=== PATIENT | female | born 1995 | race Caucasian/White ===

== ENCOUNTER 2019-11-29 08:07 | Outpatient (CLI) | payer MEDICAID, SELFPAY ==
[2019-11-29 09:55] LABS: Hemoglobin 11.7 g/dL (12.0-15.0); Mean Corpuscular HGB Conc 33.4 g/dl (32-36); Mean Corpuscular Hemoglobin 29.9 pg (26-34); Mean Corpuscular Volume 89.5 fl (80-100); Mean Platelet Volume 11.6 fl (7.4-10.4); Platelet Count Result 225 k/mm3 (150-375); Red Blood Count 3.91 M/mm3 (4.2-5.4); Red Cell Distribution Width 13.1 % (11.5-14.5); White Blood Count 9.8 K/mm3 (4.5-10.0)
[2019-11-29 10:05] LABS: Glucose 1 Hour PP 50gm Dose 117 mg/dL
== END 2019-11-29 08:08 | disposition home or self-care (01) ==
PROVIDERS: PCP Physician Assistant; Visit Provider Obstetrics & Gynecology
DX: Z34.90 Encounter for supervision of normal pregnancy, unspecified, unspecified trimester (principal); Z3A.00 Weeks of gestation of pregnancy not specified
CPT/HCPCS: 36415; 82947; 85027

== ENCOUNTER 2019-12-28 13:44 | Outpatient (CLI) | payer MEDICAID, SELFPAY ==
[2019-12-28 16:06] LABS: HIV 1/2 Ab P24 Ag Result Negative (Negative)
== END 2019-12-28 13:45 | disposition home or self-care (01) ==
LOC: ANHLAB 13:46
PROVIDERS: PCP Physician Assistant; Visit Provider Obstetrics & Gynecology
DX: Z34.90 Encounter for supervision of normal pregnancy, unspecified, unspecified trimester (principal)
CPT/HCPCS: 36415; 86703; G0432

== ENCOUNTER 2019-12-28 15:07 | Outpatient (CLI) | payer MEDICAID, SELFPAY ==
--- NOTE | ~2019-12-28 | US_ITS ---
EXAMINATION: US OB follow up DATE: 12/28/2019 15:43 INDICATION: Antepartum hemorrhage during third trimester of . TECHNIQUE: Real-time ultrasound of the pelvis was performed. The interpreting radiologist was not pre sent for the study. COMPARISON: None FINDINGS: There is a single living fetus in vertex presentation. The placenta is anterior. heart rate is 141 beats per minute (bpm). The amniotic fluid index is 14.0 cm, which is normal (5th%-95%: 8.6-24. 2 cm at 32 weeks estimated gestational age). The following biometric data were obtained: Head circumference: 29.0 cm -> 32 weeks 0 days Abdominal circumference: 27.7 cm -> 31 weeks 5 days Femur length: 6.2 cm -> 32 weeks 2 days These measurements are concordant. Head circumference to abdominal circumference ratio: 1.05 (normal range 0.96-1.14). Estimated weight: 1872 g (+/-) 281 g. or 4 lbs. 2 oz. (+/-) 10 oz. IMPRESSION: 1. Single living fetus in vertex presentation with heart rate of 141 bpm. 2. Normal amniotic fluid index of 14.0 cm. 3. Estimated weight is 37th percentile by Hadlock criteria when 02/22/2020 is used as the estima ronal date of delivery (JIGNA). Please correlate with clinical information or earlier ultrasounds for mos t accurate JIGNA. Reviewed, dictated and finalized at location A. IMPRESSION: 1. Single living fetus in vertex presentation with heart rate of 141 bpm. 2. Normal amniotic fluid index of 14.0 cm. 3. Estimated weight is 37th percentile by Hadlock criteria when 02/22/2020 is used as the estimated date of delivery (JIGNA). Please correlate with clinica l information or earlier ultrasounds for most accurate JIGNA.
== END 2019-12-28 15:08 | disposition home or self-care (01) ==
PROVIDERS: PCP Physician Assistant; Visit Provider Obstetrics & Gynecology
DX: O46.93 Antepartum hemorrhage, unspecified, third trimester (principal)
CPT/HCPCS: 36415; 76816; 86703; G0432

== ENCOUNTER 2020-01-27 06:35 | Observation (INO) | payer MEDICAID, SELFPAY ==
--- NOTE | 2020-01-27 06:35 | OBADM ---
This patient, Shelley Arce, admitted to the OB room Labor/Delivery/Recovery 106 for observation. Patient/family oriented to hospital policies and general routines including ID bracelet, bed and alarms, visiting hours, pain management, procedures, bathroom and other care routines, personal items, smoking policy, room service/diet, and visiting hours. Patient/Family are encouraged to report perceived risks to care and to ask questions if they do not understand what they are told or what they should do.
[2020-01-27 06:48] VITALS: BP 113/66; PULSE 99
[2020-01-27 07:01] VITALS: BP 103/74; PULSE 97
[2020-01-27 07:31] VITALS: BP 113/71; PULSE 82
--- NOTE | 2020-02-12 08:55 | PM.OBTRLD ---
OB - Triage/Final Diagnosis Final Diagnosis (1) contractions: Code(s): O47.9 - False labor, unspecified Status: Acute
== END 2020-01-27 08:00 | disposition home or self-care (01) ==
PROVIDERS: Admitting Provider Obstetrics & Gynecology; PCP Physician Assistant; Visit Provider Obstetrics & Gynecology
DX: O47.03 False labor before 37 completed weeks of gestation, third trimester (principal); Z3A.36 36 weeks gestation of pregnancy
CPT/HCPCS: G0378; G0379

== ENCOUNTER 2020-01-28 21:03 | Observation (INO) | payer MEDICAID, SELFPAY ==
[2020-01-28 21:20] VITALS: BMI 41.0
--- NOTE | 2020-02-28 07:53 | PM.OBTRLD ---
OB - Triage/Final Diagnosis Final Diagnosis (1) False labor: Code(s): O47.9 - False labor, unspecified Status: Acute
--- NOTE | 2020-02-28 07:54 | PM.OBTRLD ---
OB - Triage/Final Diagnosis Final Diagnosis (1) False labor: Code(s): O47.9 - False labor, unspecified Status: Acute
--- NOTE | 2020-02-28 11:47 | PM.OBTRLD ---
OB - Triage/Final Diagnosis Final Diagnosis (1) False labor: Code(s): O47.9 - False labor, unspecified Status: Acute
== END 2020-01-28 22:35 | disposition home or self-care (01) ==
PROVIDERS: Admitting Provider Obstetrics & Gynecology; PCP Physician Assistant; Visit Provider Obstetrics & Gynecology
DX: O47.03 False labor before 37 completed weeks of gestation, third trimester (principal); Z3A.36 36 weeks gestation of pregnancy
CPT/HCPCS: G0378; G0379

== ENCOUNTER 2020-01-29 09:59 | Outpatient (CLI) | payer MEDICAID, SELFPAY ==
--- NOTE | ~2020-01-29 | US_ITS ---
EXAMINATION: US OB limited DATE: 01/29/2020 10:41 INDICATION: Rupture of membranes. Third trimester. TECHNIQUE: Real-time ultrasound of the pelvis was performed. COMPARISON: Ultrasound 12/28/2019 FINDINGS: There is a single fetus in vertex presentation. The placenta is anterior, 10.6 cm from the cervix. F etal heart rate is 158 beats per minute (bpm). The amniotic fluid index is 13.9 cm, which is normal. IMPRESSION: 1. Single living fetus in vertex presentation. 2. Normal amniotic fluid index. Reviewed, dictated and finalized at location B. [facility]
--- NOTE | 2020-02-08 09:27 | PM.OBTRLD ---
OB - Triage/Final Diagnosis Final Diagnosis (1) False labor: Code(s): O47.9 - False labor, unspecified Status: Acute
== END 2020-01-29 10:00 | disposition home or self-care (01) ==
PROVIDERS: PCP Physician Assistant; Visit Provider Obstetrics & Gynecology
DX: O42.90 Premature rupture of membranes, unspecified as to length of time between rupture and onset of labor, unspecified weeks of gestation (principal); Z3A.00 Weeks of gestation of pregnancy not specified
CPT/HCPCS: 76815

== ENCOUNTER 2020-02-02 18:30 | Observation (INO) | payer MEDICAID, SELFPAY ==
--- NOTE | 2020-02-02 18:30 | OBADM ---
This patient, Shelley Arce, admitted to the OB room Labor/Delivery/Recovery 103 for observation. Patient/family oriented to hospital policies and general routines including ID bracelet, bed and alarms, visiting hours, pain management, procedures, bathroom and other care routines, personal items, smoking policy, room service/diet, and visiting hours. Patient/Family are encouraged to report perceived risks to care and to ask questions if they do not understand what they are told or what they should do.
[2020-02-02 18:50] VITALS: BMI 40.4
--- NOTE | 2020-02-28 11:49 | PM.OBTRLD ---
OB - Triage/Final Diagnosis Final Diagnosis (1) False labor: Code(s): O47.9 - False labor, unspecified Status: Acute
== END 2020-02-02 21:05 | disposition home or self-care (01) ==
PROVIDERS: Admitting Provider Obstetrics & Gynecology; PCP Physician Assistant; Visit Provider Obstetrics & Gynecology
DX: O47.9 False labor, unspecified (principal); Z3A.00 Weeks of gestation of pregnancy not specified
CPT/HCPCS: G0378; G0379

== ENCOUNTER 2020-02-03 13:08 | Observation (INO) | payer MEDICAID, SELFPAY ==
[2020-02-03 13:19] VITALS: BP 117/77; PULSE 107
--- NOTE | 2020-02-03 14:34 | PC.NURSE ---
PATIENT PRESENTED WITH C/O SROM (LEAKING IN TUB AND TOILET AND WET UNDERWARE). WAS HERE LAST NIGHT FOR CONTRACTIONS AND CERVIX DID NOT CHANGE. SVE UNCHANGED AFTER ROM PLUS NEGATIVE. PT VERY EMOTIONAL AND CRYING OUT OF FRUSTRATION. PARTNER IS WILLING TO HELP AT HOME WITH THE OTHER 2 KIDS SO SHE CAN TRY TO SLEEP/REST COMFORTABLY W/O KIDS.
--- NOTE | 2020-02-28 11:50 | PM.OBTRLD ---
OB - Triage/Final Diagnosis Final Diagnosis (1) False labor: Code(s): O47.9 - False labor, unspecified Status: Acute
== END 2020-02-03 14:30 | disposition home or self-care (01) ==
PROVIDERS: Admitting Provider Obstetrics & Gynecology; PCP Physician Assistant; Visit Provider Obstetrics & Gynecology
DX: O47.9 False labor, unspecified (principal); Z3A.00 Weeks of gestation of pregnancy not specified
CPT/HCPCS: G0378; G0379

== ENCOUNTER 2020-02-10 19:05 | Observation (INO) | payer MEDICAID, SELFPAY ==
[2020-02-10 23:00] VITALS: BMI 41.0
--- NOTE | 2020-02-10 23:02 | OBADM ---
This patient, Shelley Arce, admitted to the OB room Labor/Delivery/Recovery 102 for observation. Patient/family oriented to hospital policies and general routines including ID bracelet, bed and alarms, visiting hours, pain management, procedures, bathroom and other care routines, personal items, smoking policy, room service/diet, and visiting hours. Patient/Family are encouraged to report perceived risks to care and to ask questions if they do not understand what they are told or what they should do.
--- NOTE | 2020-02-19 10:48 | PM.OBTRLD ---
OB - Triage/Final Diagnosis Final Diagnosis (1) False labor: Code(s): O47.9 - False labor, unspecified Status: Acute
== END 2020-02-10 20:57 | disposition home or self-care (01) ==
PROVIDERS: Admitting Provider Obstetrics & Gynecology; PCP Physician Assistant; Visit Provider Obstetrics & Gynecology
DX: O47.9 False labor, unspecified (principal); Z3A.00 Weeks of gestation of pregnancy not specified
CPT/HCPCS: G0378; G0379

== ENCOUNTER 2020-02-15 05:06 | Inpatient (IN) | payer MEDICAID, SELFPAY ==
[2020-02-15] VITALS (112 sets, daily range): BP systolic 80–153; BP diastolic 48–109; PULSE 56–218; RESP 13; TEMP 36.1–36.8; O2SAT 87–100; BMI 40.2
--- NOTE | 2020-02-15 05:34 | LDADM ---
This patient, Shelley Arce, was admitted to Labor/Delivery/Recovery 103 on 02/15/20 at 05:06. Plans for labor, pain management and were discussed with patient. Patient/family oriented to hospital policies and general routines including ID bracelet, bed and alarms, visiting hours, pain management, procedures, bathroom and other care routines, personal items, smoking policy, room service/diet and guest tray routines, infant security routines, and visiting hours. Patient/Family are encouraged to report perceived risks to care and to ask questions if they do not understand what they are told or what they should do. See OBIX for further documentation.
[2020-02-15] MEDS: LACTATED RINGERS 1,000 ML 125 ML IV CONT ×3 (05:51→14:12)
[2020-02-15] MEDS: OXYTOCIN 30 UNITS/NS 500 ML 30 UNITS/500 ML BAG IV CONT (05:52)
[2020-02-15 06:07] LABS: Basophils Absolute Auto 0.1 K/mm3 (0.0-0.1); Basophils Percent Auto 0.7 % (0.2-1.2); Eosinophils Absolute Auto 0.2 K/mm3 (0-0.3); Hematocrit 34.5 % (37.0-47.0); Hemoglobin 11.4 g/dL (12.0-15.0); Immature Granulocyte Absolute 0.04 K/mm3 (0.00-0.031); Immature Granulocyte Percent A 0.5 % (0-0.5); Lymphocytes Absolute Auto 2.13 K/mm3 (0.9-3.2); Mean Corpuscular Hemoglobin 28.4 pg (26-34); Mean Corpuscular Volume 85.8 fl (80-100); Mean Platelet Volume 12.4 fl (7.4-10.4); Monocytes Absolute Auto 0.7 K/mm3 (0.1-0.6); Monocytes Percent Auto 7.6 % (2.6-8.5); Neutrophils Absolute Auto 5.8 K/mm3 (1.3-6.7); Neutrophils Percent Auto 65.2 % (45.5-73.1); Platelet Count Result 218 k/mm3 (150-375); Red Blood Count 4.02 M/mm3 (4.2-5.4); Red Cell Distribution Width 13.2 % (11.5-14.5); White Blood Count 8.9 K/mm3 (4.5-10.0)
[2020-02-15 09:01] LABS: Rapid Plasma Reagin Non-Reactive (NonReactive)
--- NOTE | 2020-02-15 10:21 | WPDANESEPP ---
Anes - Eval Pre Procedure Procedure: labor epidural Date/Time: 02/15/20 10:21 Preop Diagnosis: labor pain Pre Op Diagnosis: Induction of Labor Patient Data Age: 25 Gender: F Height: 5 ft 3.5 in Weight: 104.75 kg Last Vital Signs Temp 36.1 C L 02/15/20 10:00 Pulse 100 02/15/20 09:01 BP 145/85 H 02/15/20 09:01 Allergies Allergy/AdvReac Type Severity Reaction Status Date / Time iodine Allergy Severe Dyspnea / Verified 02/08/20 13:04 SOB shellfish derived Allergy Severe Dyspnea / Verified 02/08/20 13:04 SOB milk AdvReac Mild Abdominal Verified 02/15/20 05:20 Pain Shrimp Allergy Unknown Dyspnea / Uncoded 02/08/20 13:04 SOB Home Medications Medication Instructions Recorded Confirmed Type albuterol sulfate 90 mcg/actuation 1 inhalation INHALATION PRN PRN 10/11/19 02/02/20 History breath activated powder inhaler fluticasone propionate 50 1 inhalation INHALATION Q12H 10/11/19 02/02/20 History mcg/actuation blister powder for inhalation montelukast 10 mg PO DAILY 01/25/20 02/02/20 History loratadine [Allergy Relief 10 mg PO DAILY 02/15/20 02/15/20 History (loratadine)] Laboratory Tests 02/15/20 02/15/20 02/15/20 05:50 05:50 05:50 WBC 8.9 K/mm3 K/mm3 (4.5-10.0) RBC 4.02 M/mm3 L M/mm3 (4.2-5.4) Hgb 11.4 g/dL L g/dL (12.0-15.0) Hct 34.5 % L % (37.0-47.0) MCV 85.8 fl fl (80-100) MCH 28.4 pg pg (26-34) MCHC 33.0 g/dl g/dl (32-36) RDW 13.2 % % (11.5-14.5) Plt Count 218 k/mm3 k/mm3 (150-375) MPV 12.4 fl H fl (7.4-10.4) Immature Gran % (Auto) 0.5 % % (0-0.5) Neut % (Auto) 65.2 % % (45.5-73.1) Lymph % (Auto) 24.0 % % (18.3-44.2) Kane % (Auto) 7.6 % % (2.6-8.5) Eos % (Auto) 2.0 % % (0-4.4) Baso % (Auto) 0.7 % % (0.2-1.2) Lymph # (Auto) 2.13 K/mm3 K/mm3 (0.9-3.2) Kane # (Auto) 0.7 K/mm3 H K/mm3 (0.1-0.6) Eos # (Auto) 0.2 K/mm3 K/mm3 (0-0.3) Baso # (Auto) 0.1 K/mm3 K/mm3 (0.0-0.1) Abs Immat Gran (auto) 0.04 K/mm3 H K/mm3 (0.00-0.031) Absolute Neuts (auto) 5.8 K/mm3 K/mm3 (1.3-6.7) Absolute Nucleated RBC 0.0 K/mm3 K/mm3 (0.0-0.012) Nucleated RBC % 0.0 % % (0.0-0.2) RPR Non-reactive (NonReactive) Blood Type A Positive Antibody Screen Negative Patient hx anesthesia problems: none Family hx anesthesia problems: none PMFSH Past Medical History Medical History (Updated 02/12/20 @ 08:55 by Milli Mackey MD) Asthma Miscarriage 03/2017 Vaginal delivery 1. Full term 11/2012 Male 8lbs 2. Full term 03/2017 Male 7lbs 1oz Surgical History Surgical History H/O dilation and curettage [place] teeth removed Family History Family History Grandparent Diabetes mellitus Hypertension Hyperlipidemia Lung cancer Skin cancer Mother Skin cancer Social History Social History Smoking packs per day: 0.5 Smoking cigarettes per day: 10.0 Years smoked: 7 Smoking pack-years: 3.50 Smoking status: Former smoker Tobacco type: cigarettes Second hand tobacco smoke exposure: No Alcohol intake: never Substance use: never Gender identity (if verbalized by the patient): Female Spiritual care concerns: No Exam Day of Procedure 02/15/20 10:21
[2020-02-15] MEDS: fentaNYL CITRATE INJ (*CRX) 100 MCG/2 ML VIAL IV PUSH (11:02)
--- NOTE | 2020-02-15 16:37 | P.PCNOB_ITS ---
OB - Delivery Note Procedure Delivery date: 02/15/20 events: Labor Induction Intrapartal events: None Induction method: per pitocin protocol Delivery monitor: external FHT and external uterine Route of delivery: Laceration Description: None Specimen: No Quantitative Blood Loss: 68 Anesthesia type: Epidural Disposition: floor [place] Baby Date of : 02/15/20 Time of : 16:25 Weeks of gestation at delivery: 39 Infant gender: Male Weight (pounds): 6 Weight (ounces): 13 presentation: vertex position: Left Occiput Anterior Placenta delivery description: Spontaneous cord vessel description: 3 Vessels and Clamped/Cut score one minute: 8 score five minutes: 9
--- NOTE | 2020-02-15 16:40 | WPDOBADMIT ---
Obstetrics - Admit Note Admission Note: record reviewed. No pertinent additions to the history and/or any subsequent changes in the physical findings that are not consistent with the expected course of the were found. Additions to the history and/or subsequent changes in the physical findings follow. at 39 weeks admitted for elective induction of labor. Cervix 350/-2. Pitocin per protocol.
[2020-02-15] MEDS: OXYTOCIN 30 UNITS/NS 500 ML 30 UNITS/500 ML BAG 125 UNITS IV CONT (16:53)
[2020-02-15] MEDS: WITCH HAZEL 40 PADS 1 PAD TOPICAL (19:15)
[2020-02-16] MEDS: IBUPROFEN 600 MG TABLET PO ×3 (02:41→17:07)
[2020-02-16] MEDS: ACETAMINOPHEN 325 MG TABLET 650 MG PO ×2 (04:50→12:04)
[2020-02-16 06:07] LABS: Hematocrit 33.6 % (37.0-47.0); Hemoglobin 11.2 g/dL (12.0-15.0)
[2020-02-16 08:10] VITALS: BP 124/82; PULSE 90; RESP 20; TEMP 36.2
--- NOTE | 2020-02-16 10:35 | P.PNOB_ITS ---
OB - PN: Subj Subjective Date/time seen: 02/16/20 10:35 Patient doing well this morning. Mild cramping. Pain well controlled with medication. Denies any headache, chest pain, shortness of breath, nausea, or vomiting. Minimal lochia. Ambulating without difficulty. OB - PN: Obj Data Labs CBC & Chem 7: 02/16/20 04:56 Labs: Laboratory Results - last 24 hr 02/16/20 04:56 Hgb 11.2 L Hct 33.6 L OB - PN A/P Assessment and Plan (1) Normal spontaneous vaginal delivery: Code(s): O80 - Encounter for full-term uncomplicated delivery Status: Acute Assessment and Plan: PPD#1 doing well continue routine care anticipate dc home tomorrow Time Spent With Patient Time: Total time spent is greater than 50% in coordination of care (as documented) at patient's floor/unit and/or counseling patient: Exam 2 Const: General: cooperative, healthy appearing, comfortable and no acute distress GI: Inspection: normal to inspection and non-distended GI Palp: Yes Soft to palpation and No Tenderness to palpation present (GI) Other: fundus below umbilicus Extrem: Right lower extremity: edema (trace) Left lower extremity: edema (trace) Other: no calf tenderness
[2020-02-16 20:05] VITALS: BP 124/77; PULSE 81; RESP 14; TEMP 36.8; O2SAT 97
[2020-02-17] MEDS: IBUPROFEN 600 MG TABLET PO ×2 (00:17→10:30)
[2020-02-17] MEDS: ACETAMINOPHEN 325 MG TABLET 650 MG PO (05:14)
--- NOTE | 2020-02-17 08:35 | P.PNOB_ITS ---
OB - PN: Subj Subjective Date/time seen: 02/17/20 08:35 Patient doing well this AM. Reports mild cramping well controlled with medication. Denies any fever, chest pain, SOB, N/V. Minimal lochia. Ambulating without difficulty. OB - PN: Obj Data Labs CBC & Chem 7: 02/16/20 04:56 OB - PN A/P Assessment and Plan (1) Normal spontaneous vaginal delivery: Code(s): O80 - Encounter for full-term uncomplicated delivery Status: Acute Assessment and Plan: PPD#2 doing well discharge home in stable condition emergency precautions reviewed advised to f/u with primary OB in 4-6 weeks for visit all questions and concerns addressed Time Spent With Patient Time: Total time spent is greater than 50% in coordination of care (as document ed) at patient's floor/unit and/or counseling patient: Exam Const: General: cooperative, healthy appearing, comfortable and no acute distress GI: GI Palp: Yes Soft to palpation and No Tenderness to palpation present (GI) Other: fundus firm below umbilicus Extrem: Right lower extremity: no edema Left lower extremity: no edema Other: no calf tenderness
--- NOTE | 2020-02-17 08:37 | PM.OBDSVD ---
DS: Admitting Diagnosis Admitting Diagnosis Admitting Diagnosis: Induction of Labor OB - DS: Summary OB Procedures : None OB Procedures Intrapartum: Spontaneous Vag Delivery OB Procedures: : None Time Spent with Patient Time attestation: Total time spent providing and/or coordinating discharge services: Discharge Plan Discharge Attending physician on discharge: Farhana Heaton Discharging Clinician: Farhana Heaton Anticipated Discharge Date/Time: 02/17/20 08:37 Patient Disposition: Home, Self-Care Activity: as tolerated and pelvic rest Diet: regular Discharge Instructions: Call office ([phone]) to schedule a visit in 4-6 weeks. You may take Ibuprofen 600mg every 6 hours as needed for pain. Pain medication may make you constipated. It may be helpful to take an [id number] stool softener, such as Colace and/or Senokot, along with the pain medication to help lessen constipation. Call office or go to ED for pain not controlled with medication, headache, chest pain, shortness of breath, fever, chills, persistent nausea or vomiting, severe abdominal pain, heavy vaginal bleeding >2 pads/hour, foul vaginal discharge or odor, or problems with your breasts. Patient Instructions: Antibiotic Form Stand Alone Forms: General Discharge Information Follow-up/Referrals: Milli Mackey MD [Physician] - Discharge Medications: Continued Flovent Diskus 50 mcg/actuation blister with device 1 inhalation INHALATION Q12H RF: 0 albuterol sulfate 90 mcg/actuation aerosol powdr breath activated 1 inhalation INHALATION PRN PRN (Reason: Bronchospasm) RF: 0 montelukast 10 mg Tablet 10 mg PO DAILY RF: 0 loratadine [Allergy Relief (loratadine)] 10 mg Tablet 10 mg PO DAILY RF: 0 Date of admission: 02/15/20 05:06 Primary Care Provider: Ariel,Dov Alfonso Admitting Provider: Milli Mackey Attending physician on admission: Milli Mackey Condition: Stable
[2020-02-17 10:00] VITALS: BP 112/69; PULSE 100; RESP 20
--- NOTE | 2020-02-17 10:30 | PC.NURSE ---
Patient was given the opportunity to view the discharge video Mother & Baby Care, The First Two Weeks and to ask questions. Patient declined viewing the video and has been given the mother/baby guide for home reference.
[2020-02-19 09:43] VITALS: BP 122/77; PULSE 92; RESP 20; TEMP 37; O2SAT 99
== END 2020-02-17 10:58 | disposition home or self-care (01) | DRG 560 ==
LOC: ANHLDR 05:39 → ANHOB2 02-17 08:38 → ANHLDR 02-19 12:09 → ANHOB2 02-19 12:09
PROVIDERS: Admitting Provider Obstetrics & Gynecology; PCP Physician Assistant; Visit Provider Student in an Organized Health Care Education/Training Program
DX: O80 Encounter for full-term uncomplicated delivery (principal); Z3A.39 39 weeks gestation of pregnancy; Z37.0 Single live birth
CPT/HCPCS: 36415; 85014; 85018; 85025; 86592; 86850; 86900; 86901; A9270; J2590; J2795; J3010; J7120

== ENCOUNTER 2021-02-20 15:35 | Outpatient (CLI) | payer MEDICAID, SELFPAY ==
--- NOTE | ~2021-02-20 | US_ITS ---
EXAMINATION: US OB <= 14 weeks fetus DATE: 02/20/2021 16:27 INDICATION: Uncertain dates. . TECHNIQUE: Real-time transabdominal pelvic ultrasound was performed. COMPARISON: None. FINDINGS: The uterus measures 9.3 x 5.0 x 6.2 cm. There is an intrauterine gestational sac. A yolk sac is ident ified. The crown rump length measures 6 mm, which correlates with an estimated gestational age of 6 weeks and 3 day(s) (+/-) 4 day(s). heart motion is identified measuring 127 beats per min [place] (bpm) by M-mode Doppler. The right ovary measures 2.1 x 1.3 x 2.2 cm. The left ovary measures 2.5 x 1.0 x 2.4 cm. There is no free fluid in the pelvis. IMPRESSION: 1. Single living intrauterine gestation with estimated date of delivery of 10/13/2021. Reviewed, dictated and finalized at location A. [employer] IMPRESSION: 1. Single living intrauterine gestation with estimated date of delivery of 09/19.
== END 2021-02-20 15:36 | disposition home or self-care (01) ==
LOC: ANHIMG 15:38
PROVIDERS: PCP Physician Assistant; Visit Provider Obstetrics & Gynecology
DX: Z34.91 Encounter for supervision of normal pregnancy, unspecified, first trimester (principal); Z3A.01 Less than 8 weeks gestation of pregnancy
CPT/HCPCS: 76801

== ENCOUNTER 2021-03-10 13:58 | Outpatient (CLI) | payer MEDICAID, SELFPAY ==
[2021-03-10 20:35] LABS: Basophils Absolute Auto 0.1 K/mm3 (0.0-0.1); Basophils Percent Auto 1.1 % (0.2-1.2); Eosinophils Absolute Auto 0.1 K/mm3 (0-0.3); Eosinophils Percent Auto 1.6 % (0-4.4); Hematocrit 41.7 % (37.0-47.0); Hemoglobin 13.8 g/dL (12.0-15.0); Immature Granulocyte Absolute 0.01 K/mm3 (0.00-0.031); Immature Granulocyte Percent A 0.2 % (0-0.5); Lymphocytes Absolute Auto 1.73 K/mm3 (0.9-3.2); Lymphocytes Percent Auto 30.8 % (18.3-44.2); Mean Corpuscular HGB Conc 33.1 g/dl (32-36); Mean Corpuscular Hemoglobin 29.4 pg (26-34); Mean Corpuscular Volume 88.7 fl (80-100); Mean Platelet Volume 11.7 fl (7.4-10.4); Monocytes Absolute Auto 0.5 K/mm3 (0.1-0.6); Monocytes Percent Auto 8.6 % (2.6-8.5); Neutrophils Absolute Auto 3.2 K/mm3 (1.3-6.7); Neutrophils Percent Auto 57.7 % (45.5-73.1); Platelet Count Result 252 k/mm3 (150-375); Red Cell Distribution Width 12.9 % (11.5-14.5); White Blood Count 5.6 K/mm3 (4.5-10.0)
[2021-03-10 20:58] LABS: Vitamin D 25 Hydroxy 21.4 ng/mL
[2021-03-10 21:11] LABS: Thyroid Stimulating Hormone 0.665 uIU/mL (0.465-4.680)
[2021-03-10 21:16] LABS: Hepatitis B Surface Antigen Negative (Negative); Rubella IgG Antibody 11.4 IU/ML
[2021-03-10 21:21] LABS: HIV 1/2 Ab P24 Ag Result Negative (Negative)
[2021-03-10 21:30] LABS: Hepatitis C Virus Antibody Negative (Negative)
[2021-03-11 12:58] LABS: Rapid Plasma Reagin Non-Reactive (NonReactive)
[2021-03-17 17:53] LABS: Hematocrit 42.3 % (35.0-45.0); Hemoglobin 14.4 g/dL (11.7-15.5); MCH 30.6 pg (27.0-33.0); MCV 89.8 fL (80.0-100.0); RDW 14.5 % (11.0-15.0); Red Blood Cell Count 4.71 Mill/uL (3.80-5.10)
== END 2021-03-10 13:59 | disposition home or self-care (01) ==
PROVIDERS: Visit Provider Obstetrics & Gynecology
DX: Z34.90 Encounter for supervision of normal pregnancy, unspecified, unspecified trimester (principal)
CPT/HCPCS: 36415; 82306; 83021; 84443; 85025; 86592; 86703; 86762; 86787; 86803; 86850; 86900; 86901; 87340; G0432

== ENCOUNTER 2021-05-25 14:11 | Outpatient (CLI) | payer MEDICAID, SELFPAY ==
--- NOTE | ~2021-05-25 | US_ITS ---
EXAMINATION: US OB follow up DATE: 05/25/2021 14:57 INDICATION: Completion of prior incomplete anatomy scan during second trimester . TECHNIQUE: Real-time ultrasound of the pelvis was performed. The interpreting radiologist was not pre sent for the study. COMPARISON: 02/20/2021 FINDINGS: There is a single living fetus in transverse lie. The placenta is anterior and not low-lying with ca udal margin 7 cm from the internal cervical os. Normal cervical length of 4.2 cm. heart rate is 155 beats per minute (bpm). The amniotic fluid volume is subjectively normal. The following biometric data were obtained: BPD: 4.5 cm -> 19 weeks 4 days Head circumference: 17.2 cm -> 19 weeks 6 days Abdominal circumference: 16.5 cm -> 21 weeks 4 days Femur length: 3.4 cm -> 20 weeks 5 days These measurements are concordant. Head circumference to abdominal circumference ratio: 1.05 (normal range 1.07-1.25). Estimated weight: 288 g (+/-) 58 g or 14 oz. (+/-) 2 oz. Completion of prior incomplete anatomic survey demonstrates a normal four-chamber heart as well as normal left ventricular and right ventricular outflow tracts. There is also a normal bladder, cor d insertion with 3 vessel cord. IMPRESSION: 1. Single living fetus in transverse lie with heart rate of 155 bpm. 2. Estimated weight is >97th percentile by Hadlock criteria when 10/16/2021 is used as the estim ated date of delivery (JIGNA). Please correlate with clinical information or earlier ultrasounds for mo st accurate JIGNA. 3. Partial anatomic survey with normal heart, bladder, three-vessel cord and cord insertion. Reviewed, dictated and finalized at location A. [employer] IMPRESSION: 1. Single living fetus in transverse lie with heart rate of 155 bpm. 2. Estimated weight is >97th percentile by Hadlock criteria when 2 is used as the estimated date of delivery (JIGNA). Please correlate with clinic al information or earlier ultrasounds for most accurate JIGNA. 3. Partial anatomic survey with normal heart, bladder, three-vessel cord and cord insertion.
== END 2021-05-25 14:12 | disposition home or self-care (01) ==
LOC: ANHIMG 14:13
PROVIDERS: Visit Provider Obstetrics & Gynecology
DX: Z36.0 Encounter for antenatal screening for chromosomal anomalies (principal); Z36.3 Encounter for antenatal screening for malformations
CPT/HCPCS: 76816

== ENCOUNTER 2021-09-08 20:55 | Observation (INO) | payer MEDICAID, SELFPAY ==
[2021-09-08 21:00] VITALS: BMI 33.5
--- NOTE | 2021-09-08 21:00 | PC.NURSE ---
This patient, Shelley Arce, admitted to the OB room Labor/Delivery/Recovery 107 for observation. Patient/family oriented to hospital policies and general routines including ID bracelet, bed and alarms, visiting hours, pain management, procedures, bathroom and other care routines, personal items, smoking policy, room service/diet, and visiting hours. Patient/Family are encouraged to report perceived risks to care and to ask questions if they do not understand what they are told or what they should do.
--- NOTE | 2021-09-08 21:20 | PC.NURSE ---
Patient states she has been leaking fluild for past 2 days. States she is unsure what the fluid however it is changing colors.
[2021-09-08 21:26] VITALS: TEMP 36.1
[2021-09-08 21:31] VITALS: BP 117/74; PULSE 98
[2021-09-08 21:46] VITALS: BP 117/74; PULSE 85
[2021-09-08 22:01] VITALS: BP 109/82; PULSE 90
--- NOTE | 2021-09-08 22:15 | PC.NURSE ---
Dr. Narvaez on unit. Reported on pt and ROM plus negative. Pt to be discharged to home.
--- NOTE | 2021-09-15 06:48 | PM.OBTRLD ---
OB - Triage/Final Diagnosis Visit Information Comments/Additional reasons for admission: I have assessed the risk for this patient, Shelley Arce, and determined that she would benefit from observation care. Final Diagnosis (1) Vaginal discharge during : Code(s): O26.899 - Other specified related conditions, unspecified trimester; N89.8 - Other specified noninflammatory disorders of vagina Status: Acute
== END 2021-09-08 22:25 | disposition home or self-care (01) ==
PROVIDERS: Admitting Provider Obstetrics & Gynecology; Visit Provider Obstetrics & Gynecology
DX: O26.893 Other specified pregnancy related conditions, third trimester (principal); Z3A.35 35 weeks gestation of pregnancy; N89.8 Other specified noninflammatory disorders of vagina
CPT/HCPCS: 84112; G0378; G0379

== ENCOUNTER 2021-09-21 20:50 | Observation (INO) | payer MEDICAID, SELFPAY ==
[2021-09-21 22:03] VITALS: BP 102/65; PULSE 81
== END 2021-09-21 22:17 | disposition home or self-care (01) ==
PROVIDERS: Admitting Provider Obstetrics & Gynecology; Visit Provider Obstetrics & Gynecology
DX: O47.9 False labor, unspecified (principal); Z3A.00 Weeks of gestation of pregnancy not specified
CPT/HCPCS: G0378; G0379

== ENCOUNTER 2021-09-23 22:19 | Observation (INO) | payer MEDICAID, SELFPAY | END 2021-09-23 23:58 | disposition home or self-care (01) | PROVIDERS: Admitting Provider Obstetrics & Gynecology; Visit Provider Obstetrics & Gynecology | DX: O47.9 False labor, unspecified (principal); Z3A.00 Weeks of gestation of pregnancy not specified | CPT/HCPCS: G0378; G0379 ==

== ENCOUNTER 2021-10-04 21:00 | Observation (INO) | payer MEDICAID, SELFPAY ==
--- NOTE | 2021-10-06 07:29 | PM.OBTRLD ---
OB - Triage/Final Diagnosis Visit Information Comments/Additional reasons for admission: I have assessed the risk for this patient, Shelley Arce, and determined that she would benefit from observation care. Final Diagnosis (1) False labor: Code(s): O47.9 - False labor, unspecified Status: Acute
== END 2021-10-04 22:15 | disposition home or self-care (01) ==
PROVIDERS: Admitting Provider Obstetrics & Gynecology; PCP Physician Assistant; Visit Provider Obstetrics & Gynecology
DX: O47.1 False labor at or after 37 completed weeks of gestation (principal); Z3A.38 38 weeks gestation of pregnancy
CPT/HCPCS: 84112; G0378; G0379

== ENCOUNTER 2021-10-06 06:15 | Inpatient (IN) | payer MEDICAID, SELFPAY ==
[2021-10-06] VITALS (112 sets, daily range): BP systolic 94–150; BP diastolic 28–124; PULSE 47–139; RESP 16; TEMP 36.5–36.6; O2SAT 80–100; BMI 35.1
--- NOTE | 2021-10-06 06:42 | LDADM ---
This patient, Shelley Arce, was admitted to Labor/Delivery/Recovery 104 on 10/06/21 at 06:15. Plans for labor, pain management and were discussed with patient. Patient/family oriented to hospital policies and general routines including ID bracelet, bed and alarms, visiting hours, pain management, procedures, bathroom and other care routines, personal items, smoking policy, room service/diet and guest tray routines, infant security routines, and visiting hours. Patient/Family are encouraged to report perceived risks to care and to ask questions if they do not understand what they are told or what they should do. See OBIX for further documentation.
[2021-10-06] MEDS: LACTATED RINGERS 1,000 ML 125 ML IV CONT ×3 (07:11→13:43)
[2021-10-06] MEDS: AMPICILLIN 2 GM/NS 100 ML 2 GM/100 ML BAG IVPB (07:11)
[2021-10-06 07:15] LABS: Basophils Absolute Auto 0.1 K/mm3 (0.0-0.1); Basophils Percent Auto 0.6 % (0.2-1.2); Eosinophils Absolute Auto 0.1 K/mm3 (0-0.3); Eosinophils Percent Auto 0.9 % (0-4.4); Hematocrit 33.4 % (37.0-47.0); Hemoglobin 10.6 g/dL (12.0-15.0); Immature Granulocyte Absolute 0.04 K/mm3 (0.00-0.031); Immature Granulocyte Percent A 0.4 % (0-0.5); Lymphocytes Absolute Auto 1.85 K/mm3 (0.9-3.2); Lymphocytes Percent Auto 20.5 % (18.3-44.2); Mean Corpuscular HGB Conc 31.7 g/dl (32-36); Mean Corpuscular Hemoglobin 27.3 pg (26-34); Mean Corpuscular Volume 86.1 fl (80-100); Mean Platelet Volume 12.1 fl (7.4-10.4); Monocytes Absolute Auto 0.7 K/mm3 (0.1-0.6); Monocytes Percent Auto 8.1 % (2.6-8.5); Neutrophils Absolute Auto 6.3 K/mm3 (1.3-6.7); Neutrophils Percent Auto 69.5 % (45.5-73.1); Platelet Count Result 210 k/mm3 (150-375); Red Blood Count 3.88 M/mm3 (4.2-5.4); Red Cell Distribution Width 13.7 % (11.5-14.5)
[2021-10-06] MEDS: OXYTOCIN 30 UNITS/NS 500 ML 30 UNITS/500 ML BAG IV CONT (07:16)
--- NOTE | 2021-10-06 07:32 | PM.IMHP ---
H&P: HPI History of Present Illness Date/Time: 10/06/21 07:32 Chief Complaint: induction of labor Narrative: Shelley is a 26yo at 39.0 for elective IOL. only complicated by GBS pos and late care. Review of Systems Review of Systems: All systems reviewed & are unremarkable except as noted in HPI and below PMFSH Past Medical History Medical History Asthma Miscarriage x1 Vaginal delivery x3 Surgical History Surgical History H/O dilation and curettage [place] teeth removed Family History Family History (Updated 09/16/21 @ 13:34 by Tiana Meng RN) Grandparent Skin cancer Diabetes mellitus Hyperlipidemia Lung cancer Hypertension Bone spur Mother Skin cancer Social History Social History Smoking status: Never smoker Tobacco type: cigarettes Second hand tobacco smoke exposure: No Additional smoking assessment comments: 1-2 cigarettes 2-3 days per week when at work Alcohol intake: never Substance use: never Gender identity (if verbalized by the patient): Female Spiritual care concerns: No Meds Home Medications and Allergies Home Medications Medication Instructions Recorded Confirmed Type albuterol sulfate 90 mcg/actuation 1 inhalation inhalation PRN PRN 10/11/19 10/06/21 History breath activated powder inhaler Bronchospasm ondansetron HCl 4 mg tablet 4 mg PO Q6H PRN nausea and 06/16/21 10/06/21 Rx vomiting #30 tabs fluticasone 500 mcg-salmeterol 50 1 inh inhalation PRN PRN Shortness 10/06/21 10/06/21 History mcg/dose blistr powdr for Of Breath inhalation (Wixela Inhub) Allergies Allergy/AdvReac Type Severity Reaction Status Date / Time iodine Allergy Severe Dyspnea / Verified 10/06/21 07:12 SOB milk Allergy Severe Swelling Verified 10/06/21 07:12 of Lip/Tongue/Throat shellfish derived Allergy Severe Dyspnea / Verified 10/06/21 07:12 SOB shrimp Allergy Severe Dyspnea / Verified 10/06/21 07:12 SOB tree and shrub pollen Allergy Dyspnea / Verified 10/06/21 07:12 SOB Shrimp Allergy Severe Dyspnea / Uncoded 10/06/21 07:12 SOB Vital Signs Vital Signs - 24 hr 10/06/21 06:39 10/06/21 06:45 10/06/21 07:00 Temperature 97.9 F Pulse Rate 89 103 H Blood Pressure 129/79 114/73 Oxygen Delivery 10/06/21 07:30 10/06/21 06:40 Temperature Pulse Rate 69 Blood Pressure 120/72 Oxygen Delivery Room Air Exam Const: General: no acute distress Resp: Effort & Inspection: normal respiratory effort Auscultation: clear to auscultation bilaterally Cardio: Rate: regular rate Rhythm: regular rhythm GI: GI Palp: Yes Soft to palpation Extrem: General: normal to inspection H&P: Results Labs Labs: Short CBC 10/06/21 Range/Units 07:00 WBC 9.0 (4.5-10.0) K/mm3 Hgb 10.6 L D (12.0-15.0) g/dL Hct 33.4 L (37.0-47.0) % Plt Count 210 (150-375) k/mm3 Assessment and Plan Additional Plan Here for induction of labor-pitocin GBS pos will AROM after 2nd dose abx FHT category 1
[2021-10-06] MEDS: fentaNYL CITRATE INJ (*CRX) 100 MCG/2 ML VIAL 50 MCG IV PUSH ×2 (08:34→09:40)
--- NOTE | 2021-10-06 09:47 | WPDANESEPPF ---
Anes - Initial Pre Proc Eval Date/Time: 10/06/21 09:47 Surgeon: Michelle Narvaez MD Pre Op Diagnosis: iol Patient Data Age: 26 Gender: F Height: 1.6 m Weight: 90 kg Last Vital Signs Temp 36.6 C 10/06/21 07:00 Pulse 67 10/06/21 09:45 BP 118/79 10/06/21 09:45 O2 Del Method Room Air 10/06/21 06:40 Allergies Allergy/AdvReac Type Severity Reaction Status Date / Time iodine Allergy Severe Dyspnea / Verified 10/06/21 07:12 SOB milk Allergy Severe Swelling Verified 10/06/21 07:12 of Lip/Tongue/Throat shellfish derived Allergy Severe Dyspnea / Verified 10/06/21 07:12 SOB shrimp Allergy Severe Dyspnea / Verified 10/06/21 07:12 SOB tree and shrub pollen Allergy Dyspnea / Verified 10/06/21 07:12 SOB Shrimp Allergy Severe Dyspnea / Uncoded 10/06/21 07:12 SOB Home Medications Medication Instructions Recorded Confirmed Type albuterol sulfate 90 mcg/actuation 1 inhalation inhalation PRN PRN 10/11/19 10/06/21 History breath activated powder inhaler Bronchospasm ondansetron HCl 4 mg tablet 4 mg PO Q6H PRN nausea and 06/16/21 10/06/21 Rx vomiting #30 tabs fluticasone 500 mcg-salmeterol 50 1 inh inhalation PRN PRN Shortness 10/06/21 10/06/21 History mcg/dose blistr powdr for Of Breath inhalation (Wixela Inhub) Laboratory Tests 10/06/21 10/06/21 10/06/21 07:00 07:00 07:00 WBC 9.0 K/mm3 K/mm3 (4.5-10.0) RBC 3.88 M/mm3 L M/mm3 (4.2-5.4) Hgb 10.6 g/dL L D g/dL (12.0-15.0) Hct 33.4 % L % (37.0-47.0) MCV 86.1 fl fl (80-100) MCH 27.3 pg pg (26-34) MCHC 31.7 g/dl L g/dl (32-36) RDW 13.7 % % (11.5-14.5) Plt Count 210 k/mm3 k/mm3 (150-375) MPV 12.1 fl H fl (7.4-10.4) Immature Gran % (Auto) 0.4 % % (0-0.5) Neut % (Auto) 69.5 % % (45.5-73.1) Lymph % (Auto) 20.5 % % (18.3-44.2) [place] % (Auto) 8.1 % % (2.6-8.5) Eos % (Auto) 0.9 % % (0-4.4) Baso % (Auto) 0.6 % % (0.2-1.2) Lymph # (Auto) 1.85 K/mm3 K/mm3 (0.9-3.2) [place] # (Auto) 0.7 K/mm3 H K/mm3 (0.1-0.6) Eos # (Auto) 0.1 K/mm3 K/mm3 (0-0.3) Baso # (Auto) 0.1 K/mm3 K/mm3 (0.0-0.1) Abs Immat Gran (auto) 0.04 K/mm3 H K/mm3 (0.00-0.031) Absolute Neuts (auto) 6.3 K/mm3 K/mm3 (1.3-6.7) Absolute Nucleated RBC 0.0 K/mm3 K/mm3 (0.0-0.012) Nucleated RBC % 0.0 % % (0.0-0.2) RPR Pending Blood Type A Positive Antibody Screen Negative Patient hx anesthesia problems: none Family hx anesthesia problems: none Results Review: All pre-operative results and documents have been reviewed as part of the pre-operative evaluation. [facility] Past Medical History Medical History Asthma Miscarriage x1 Vaginal delivery x3 Surgical History Surgical History H/O dilation and curettage [place] teeth removed Family History Family History (Updated 09/16/21 @ 13:34 by Tiana Meng RN) Grandparent Skin cancer Diabetes mellitus Hyperlipidemia Lung cancer Hypertension Bone spur Mother Skin cancer Social History Social History Smoking status: Never smoker Tobacco type: cigarettes Second hand tobacco smoke exposure: No Additional smoking assessment comments: 1-2 cigarettes 2-3 days per week when at work Alcohol intake: never Substance use: never Gender identity (if verbalized by the patient): Female Spiritual care concerns: No Anes - Eval Final PreProcedure Day of Procedure 10/06/21 09:47 Patient weight: overweight Heart: regular rate and rhythm Lungs: clear to auscultation and normal air movemen
[2021-10-06] MEDS: AMPICILLIN 1 GM/NS 50 ML 1 GM/50 ML BAG IVPB (10:59)
--- NOTE | 2021-10-06 12:40 | PM.OBPNLAB ---
Pain Control Date/time seen: 10/06/21 12:40 Pain control: epidural Pelvic Exam Dilation (cm): 10 Effacement (%): 100 station: -2 Status status: Category ll Assessment and Plan Comments: Called for delivery at 1158. On arrival, baby OP at -2 station. After 20 min pushing, no descent. Unable to manually rotate baby to OA. Baby having deep variables with pushing so decision made to labor down with peanut ball. Pitocin off for now, FHT improved on side- variables now very small.
[2021-10-06] MEDS: SODIUM CHLORIDE 0.9% IV 300 ML 180 ML I-UTERINE (13:46)
--- NOTE | 2021-10-06 15:25 | PM.OBPRVD ---
OB - Delivery Note Procedure Delivery date: 10/06/21 Events: Positive Group B Strep (GBS) Intrapartal Events: Arrest of Descent (for 3 hours until rotated OA) and Decelerations Induction method: Per Pitocin Protocol Delivery monitor: Internal FHT and Internal Uterine Route of delivery: Laceration Description: None Quantitative Blood Loss (ml): 150 Anesthesia type: Epidural Disposition: Floor Narrative: With adequate expulsive efforts by the mother, the baby's head was delivered OA. The baby's anterior shoulder was delivered under the pubic symphysis without difficulty. The posterior shoulder and the rest of the baby delivered without difficulty. The infant was placed on the mothers chest and suctioned and stimulated. The cord was clamped and cut after 30 seconds. Mother and baby both stable. Baby Date of : 10/06/21 Time of : 15:12 Weeks of gestation at delivery: 39 gender: Male Weight (pounds): 8 Weight (ounces): 3 presentation: vertex position: Left Occiput Anterior Placenta delivery description: Spontaneous Cord Vessel Description: 3 Vessels and Delayed Cord Clamping score one minute: 8 score five minutes: 9
[2021-10-06] MEDS: OXYTOCIN 30 UNITS/NS 500 ML 30 UNITS/500 ML BAG 125 UNITS IV CONT (15:43)
--- NOTE | 2021-10-06 19:19 | OBPPTRN ---
1742 Patient transferred to post room #284 via W/C. Support person present. Oriented to unit, room, information board, rooming in, admission packet and security measures. Patient verbalizes understanding.
[2021-10-07] MEDS: IBUPROFEN 600 MG TABLET PO ×4 (01:14→22:49)
[2021-10-07 05:46] LABS: Hematocrit 29.9 % (37.0-47.0); Hemoglobin 9.8 g/dL (12.0-15.0)
[2021-10-07 07:35] VITALS: BP 110/72; PULSE 63; RESP 18; TEMP 36.2; O2SAT 100
--- NOTE | 2021-10-07 07:36 | P.PNOB_ITS ---
OB - PN: Subj Subjective Date/time seen: 10/07/21 07:36 Patient comments: no complaints and pain well controlled baby status: doing well and bottle feeding well [place] feeding status: exclusively bottle feeding OB - PN: Obj Data Labs CBC & Chem 7: 10/07/21 05:07 Labs: Laboratory Results - last 24 hr 10/06/21 10/07/21 07:00 05:07 Hgb 9.8 L Hct 29.9 L Blood Type A Positive Antibody Screen Negative OB - PN A/P Assessment and Plan (1) , delivered: Code(s): O80 - Encounter for full-term uncomplicated delivery Status: Acute Plan day: 1 Plan: routine care Time Spent With Patient Time: Total time spent is greater than 50% in coordination of care (as documented) at patient's floor/unit and/or counseling patient: Time with patient: less than 15 minutes Exam Narrative: NAD abdomen soft, nontender, fundus firm below the umbilicus Extremities nontender, 1+ edema
[2021-10-07 08:00] VITALS: PULSE 63; RESP 18; O2SAT 100
[2021-10-07] MEDS: DOCUSATE SODIUM 100 MG CAPSULE PO ×2 (08:45→16:50)
[2021-10-07] MEDS: POLYSACCHARIDE IRON COMPLEX 150 MG CAPSULE PO ×2 (08:45→16:50)
--- NOTE | 2021-10-07 08:56 | WPDANLDPN2 ---
Anes-Prog Note L&D Date/Time: 10/07/21 08:56 Neuro status: Neuro function grossly intact. Vital Signs: Last Vital Signs Temp 36.2 C L 10/07/21 07:35 Pulse 63 10/07/21 07:35 Resp 18 10/07/21 07:35 BP 110/72 10/07/21 07:35 Pulse Ox 100 10/07/21 07:35 O2 Del Method Room Air 10/06/21 06:40 Pain score (VAS): 0 I/O: Intake & Output 10/06/21 10/07/21 10/07/21 23:59 07:59 15:59 Intake Total 500 Output Total 50 Balance 450 Patient feedback: Patient satisfied with anesthetic care.
[2021-10-07 09:21] LABS: Rapid Plasma Reagin Non-Reactive (NonReactive)
[2021-10-07 12:35] VITALS: BP 104/68; PULSE 75; RESP 18; TEMP 36.9; O2SAT 100
[2021-10-07 19:45] VITALS: BP 112/73; PULSE 63; RESP 16; TEMP 36.6
[2021-10-08] MEDS: POLYSACCHARIDE IRON COMPLEX 150 MG CAPSULE PO (07:58)
[2021-10-08] MEDS: IBUPROFEN 600 MG TABLET PO (07:59)
[2021-10-08] MEDS: DOCUSATE SODIUM 100 MG CAPSULE PO (07:59)
[2021-10-08] MEDS: FLUTICASONE/SALMETEROL 230-21 MCG INHALER 1 PUFF 2 PUFF INHALATION (08:01)
[2021-10-08 08:05] VITALS: BP 117/76; PULSE 59; RESP 16; TEMP 37.1; O2SAT 99
--- NOTE | 2021-10-08 08:17 | PM.OBPNVD ---
OB - PN: Subj Subjective Date/time seen: 10/08/21 08:17 Patient comments: no complaints, pain well controlled and tolerating diet OB - PN: Obj Data Labs CBC & Chem 7: 10/07/21 05:07 Labs: Laboratory Results - last 24 hr 10/06/21 07:00 RPR Non-reactive OB - PN A/P Plan day: 2 Plan: routine care and discharge home Time Spent With Patient Time: Total time spent is greater than 50% in coordination of care (as documented) at patient's floor/unit and/or counseling patient: Exam Const: General: comfortable and no acute distress Resp: Effort & Inspection: normal respiratory effort Auscultation: no rales, no rhonchi and no wheezes Cardio: Rate: regular rate Heart sounds: no click, no murmurs and no rubs GI: GI Palp: Yes Soft to palpation and No Tenderness to palpation present (GI) Auscultation: normal bowel sounds Extrem: General: normal to inspection, no pedal edema and no calf tenderness
--- NOTE | 2021-10-08 08:18 | PM.OBDSVD ---
DS: Admitting Diagnosis Discharge Date 10/08/21 Admitting Diagnosis term OB - DS: Summary OB Procedures : None OB Procedures Intrapartum: Spontaneous Vag Delivery OB Procedures: : None Time Spent with Patient Time attestation: Total time spent providing and/or coordinating discharge services: DS: Data Data Completed and Pending Labs on day of discharge: Labs from last 24 hours 10/06/21 07:00 RPR Non-reactive Discharge Plan Discharge Discharging Clinician: Eagle Guevara Patient Disposition: Home, Self-Care Activity: pelvic rest Diet: regular Patient Instructions: Antibiotic Form Stand Alone Forms: General Discharge Information Follow-up/Referrals: Eagle Guevara MD [Physician] - Discharge Medications: Continued albuterol sulfate 90 mcg/actuation aerosol powdr breath activated 1 inhalation INHALATION PRN PRN (Reason: Bronchospasm) fluticasone propion-salmeterol [Wixela Inhub] 500-50 mcg/dose blister with device 1 inh INHALATION PRN PRN (Reason: Shortness Of Breath) ondansetron HCl 4 mg tablet 4 mg PO Q6H PRN (Reason: nausea and vomiting) Qty: 30 1RF Date of admission: 10/06/21 06:15 Primary Care Provider: Ariel,Dov Alfonso Admitting Provider: Michelle Narvaez Attending physician on admission: Michelle Narvaez Condition: Stable
--- NOTE | 2021-10-08 08:45 | PC.NURSE ---
Patient viewed the discharge video Mother & Baby Care, The First Two Weeks . Patient was given the opportunity and encouraged to ask questions. Patient verbalized understanding of information shared and has been given the mother/baby guide for home reference. Patient's fourth child has watched the video with past deliveries.
[2021-10-09 11:14] VITALS: BP 113/71; PULSE 72; RESP 18; TEMP 36.9; O2SAT 99
== END 2021-10-08 10:45 | disposition home or self-care (01) | DRG 560 ==
LOC: ANHOB2 10-08 08:42 → ANHLDR 10-09 10:36 → ANHOB2 10-09 10:36
PROVIDERS: Admitting Provider Obstetrics & Gynecology; PCP Physician Assistant; Visit Provider Obstetrics & Gynecology
DX: O99.824 Streptococcus B carrier state complicating childbirth (principal); Z37.0 Single live birth; Z3A.39 39 weeks gestation of pregnancy; O36.8330 Maternal care for abnormalities of the fetal heart rate or rhythm, third trimester, not applicable or unspecified; O62.1 Secondary uterine inertia
CPT/HCPCS: 36415; 85014; 85018; 85025; 86592; 86850; 86900; 86901; A9270; J0290; J2590; J2795; J3010; J7030; J7120

== ENCOUNTER 2022-06-29 12:28 | Emergency (ER) | payer MEDICAID, SELFPAY ==
[2022-06-29 12:32] VITALS: BP 152/90; PULSE 96; RESP 17; TEMP 36.9; O2SAT 99
--- NOTE | 2022-06-29 12:33 | ED.EYEPROB ---
HPI - Eye Problem General Chief complaint: Eye Problems Stated complaint: EYE IRRITATION Time Seen by Provider: 06/29/22 12:33 Source: patient Mode of arrival: ambulatory Limitations: no limitations History of Present Illness HPI Narrative: 27-year-old female with no significant past medical history presents to the ER with a 1 day history of -- left eye pain, redness, photophobia. watery discharge. MD chief complaint: eye pain, eye redness and foreign body Onset (ago): day(s) ( Started 1 day ago) Onset description: sudden Duration: constant Location: left eye Eye Symptoms: burning, redness, pain, foreign body sensation, discharge and photophobia Place: home Severity: moderate If Pain, Quality: sharp Associated symptoms: none Treatments Prior to Arrival: none Related Data Patient tetanus UTD: Yes Home Medications Medication Instructions Recorded Confirmed albuterol sulfate 90 mcg/actuation 1 inhalation inhalation PRN PRN 10/11/19 06/29/22 breath activated powder inhaler Bronchospasm fluticasone 500 mcg-salmeterol 50 1 inh inhalation PRN PRN Shortness 10/06/21 06/29/22 mcg/dose blistr powdr for Of Breath inhalation (Wixela Inhub) Allergies Allergy/AdvReac Type Severity Reaction Status Date / Time iodine Allergy Severe Dyspnea / Verified 06/29/22 12:36 SOB milk Allergy Severe Swelling Verified 06/29/22 12:36 of Lip/Tongue/Throat shellfish derived Allergy Severe Dyspnea / Verified 06/29/22 12:36 SOB shrimp Allergy Severe Dyspnea / Verified 06/29/22 12:36 SOB tree and shrub pollen Allergy Dyspnea / Verified 06/29/22 12:36 SOB Shrimp Allergy Severe Dyspnea / Uncoded 06/29/22 12:36 SOB Review of Systems Review of Systems: All systems reviewed & are unremarkable except as noted in HPI and below Constitutional: Constitutional: Reports as per HPI and Reports no additional constitutional complaints Eyes: Eyes: Reports as per HPI, Reports no additional eye complaints and Reports photophobia ENT: Reports system reviewed and no additional complaints, except as documented Cardiovascular: Cardiovascular: Reports as per HPI and Reports no additional cardiovascular complaints Respiratory: Respiratory: Reports as per HPI and Reports no additional respiratory complaints Gastrointestinal: Gastrointestinal: Reports as per HPI and Reports no additional gastrointestinal complaints Genitourinary: Genitourinary: Reports no additional female genitourinary complaints and Reports as per HPI Musculoskeletal: Musculoskeletal: Reports no additional musculoskeletal complaints and Reports as per HPI Integumentary/Breasts: Skin/Breast: Reports system reviewed and no additional complaints, except as docu and Reports as per HPI Neurologic: Reports system reviewed and no additional complaints, except as documented and Reports as per HPI Psychiatric: Psychiatric: Reports no additional psychiatric complaints and Reports as per HPI Endocrine: Endocrine: Reports no additional endocrine complaints and Reports as per HPI Hematologic/Lymphatic: Hematologic/Lymphatic: Reports no additional hematologic/lymphatic complaints and Reports as per HPI Allergic/Immunologic: Allergic/Immunologic: Reports no additional allergic/immunologic complaints and Reports as per HPI PMFSH Past Medical History Medical History Asthma Miscarriage x1 Vaginal delivery x3 Surgical History Surgical History H/O dilation and curettage [place] teeth removed Family History Family History Grandparent Skin cancer Diabetes mellitus Hyperlipidemia Lung cancer Hypertension Bone spur Mother Skin cancer Social History Social History Smoking status: Never smoker Tobacco type: cigarettes Sec
[2022-06-29] MEDS: FLUORESCEIN SOD 1 MG/STRIP EACH EYE (12:39)
[2022-06-29] MEDS: TETRACAINE HCL 0.5% OPHTH SOLN 4 ML BTL 1 DROP EACH EYE (12:39)
[2022-06-29] MEDS: DACRIOSE EYE IRRIGATION 118 ML BOTTLE (12:49)
[2022-06-29 13:21] VITALS: BP 129/82; PULSE 79; RESP 16; TEMP 36.6; O2SAT 99
== END 2022-06-29 13:28 | disposition home or self-care (01) ==
PROVIDERS: Emergency Provider Internal Medicine Critical Care Medicine; PCP Physician Assistant
DX: S05.02XA Injury of conjunctiva and corneal abrasion without foreign body, left eye, initial encounter (principal); X58.XXXA Exposure to other specified factors, initial encounter
CPT/HCPCS: 99283; A9270

== ENCOUNTER 2023-07-08 07:50 | Emergency (ER) | payer MEDICAID, SELFPAY ==
[2023-07-08 07:50] VITALS: BP 134/78; PULSE 90; RESP 17; TEMP 37.1; O2SAT 98
--- NOTE | 2023-07-08 07:56 | ED.GENADULT ---
HPI - General Adult General Chief complaint: Upper Respiratory Infection Stated complaint: cold Time Seen by Provider: 07/08/23 07:52 History of Present Illness HPI narrative: Shelley is a 28F with a PMH of asthma that presented to the ED with 3-4 days of being fatigued, nasal congestion, and cough. There is no fever, dyspnea, or diarrhea. There was one episode of non-bloody vomit. Related Data Home Medications Medication Instructions Recorded Confirmed albuterol sulfate 90 mcg/actuation 1 inhalation inhalation PRN PRN 10/11/19 07/08/23 breath activated powder inhaler Bronchospasm Allergies Allergy/AdvReac Type Severity Reaction Status Date / Time iodine Allergy Severe Dyspnea / Verified 07/08/23 07:56 SOB milk Allergy Severe Swelling Verified 07/08/23 07:56 of Lip/Tongue/Throat shellfish derived Allergy Severe Dyspnea / Verified 07/08/23 07:56 SOB shrimp Allergy Severe Dyspnea / Verified 07/08/23 07:56 SOB tree and shrub pollen Allergy Dyspnea / Verified 07/08/23 07:56 SOB Shrimp Allergy Severe Dyspnea / Uncoded 07/08/23 07:56 SOB Review of Systems Review of Systems: All systems reviewed & are unremarkable except as noted in HPI and below PMFSH Past Medical History Medical History Asthma Miscarriage x1 Vaginal delivery x3 Surgical History Surgical History H/O dilation and curettage [place] teeth removed Family History Family History Grandparent Skin cancer Diabetes mellitus Hyperlipidemia Lung cancer Hypertension Bone spur Mother Skin cancer Social History Social History Smoking status: Never smoker Tobacco type: cigarettes Second hand tobacco smoke exposure: No Additional smoking assessment comments: 1-2 cigarettes 2-3 days per week when at work Alcohol intake: never Substance use: never Gender identity (if verbalized by the patient): Female Spiritual care concerns: No Exam Const: General: cooperative, healthy appearing, comfortable, no acute distress, well developed, alert, awake and Physically active Orientation/consciousness: oriented to person, oriented to place and oriented to time HENMT: Head: normal to inspection, normocephalic and atraumatic Ears: hearing grossly normal bilaterally and external ears normal Face/Nose/Sinus: Normal external nose present Eyes: General: appearance normal, both eyes and all related structures Periorbital: periorbital findings normal Sclera: sclerae normal Pupils: Equal, round and reactive pupils present Neck: Neck: normal visual inspection Chest: Chest palpation & inspection: normal inspection of the chest Resp: Effort & Inspection: normal respiratory effort, able to speak in complete sentences and no respiratory distress Auscultation: clear to auscultation bilaterally Cardio: Jugular venous distension: no JVD Rate: regular rate Rhythm: regular rhythm GI: Inspection: normal to inspection GI Palp: Yes Soft to palpation Auscultation: normal bowel sounds Skin: General skin exam: normal color and no rashes or lesions noted Neuro: General: oriented to person, oriented to place and oriented to time Cranial nerves: Yes Equal, round and reactive pupils present Extrem: General: normal to inspection Course Course Emergency Course: ordered viral testing. Viral testing negative. Given URI symptoms without dyspnea, fever or abnormal vitals it is most likely a viral URI. Vital Signs Vital signs: Vital Signs Temperature 98.8 F 07/08/23 07:50 Pulse Rate 90 07/08/23 07:50 Respiratory Rate 17 07/08/23 07:50 Blood Pressure 134/78 07/08/23 07:50 Pulse Oximetry 98 07/08/23 07:50 Oxygen Delivery Room Air 07/08/23 07:50 Temperature 98.3
[2023-07-08 07:59] VITALS: BP 134/78; PULSE 95; TEMP 36.8; O2SAT 97
[2023-07-08 08:10] VITALS: O2SAT 98
[2023-07-08 08:32] LABS: Influenza A QL RT-PCR Negative (Negative); Influenza B QL RT-PCR Negative (Negative); RSV RNA, RT-PCR Negative (Negative); SARS-CoV-2 RNA PCR Negative (Negative)
[2023-07-08 08:40] VITALS: BP 134/78; PULSE 90; RESP 17; TEMP 37.1; O2SAT 98
== END 2023-07-08 08:40 | disposition home or self-care (01) ==
PROVIDERS: Emergency Provider Family Medicine
DX: J06.9 Acute upper respiratory infection, unspecified (principal); J45.909 Unspecified asthma, uncomplicated; Z79.51 Long term (current) use of inhaled steroids; Z20.822 Contact with and (suspected) exposure to COVID-19; F17.210 Nicotine dependence, cigarettes, uncomplicated
CPT/HCPCS: 87637; 99283

== ENCOUNTER 2023-10-11 23:52 | Emergency (ER) | payer OTHER, MEDICAID, SELFPAY ==
[2023-10-11 23:52] VITALS: BP 121/80; PULSE 89; RESP 18; TEMP 36.8; O2SAT 98
--- NOTE | 2023-10-12 00:14 | ED.GENADULT ---
HPI - General Adult General Chief complaint: Skin/Abscess/Foreign Body Stated complaint: Insect Sting on L leg Time Seen by Provider: 10/12/23 00:06 History of Present Illness HPI narrative: The patient is a 28-year-old woman with history of asthma, who got stung by a wasp on 10/10/2023 at 10:20 a.m. to the left ankle, resulting in a local venomous reaction with hyperemia and swelling. The symptoms have continued and the hyperemia has worsened and is now up to the left lower leg to below the knee, with associated tenderness, worsening swelling of the left ankle and foot compared to the right, difficulty ambulating. No respiratory symptoms such as wheezing or cough. No fevers or chills. Roberts daughter had poison pari and she got in contact with that so she also has small allergic reactions in the lower extremities bilaterally from that. Given her continued symptoms, which have been increasing, she presents for evaluation. Related Data Home Medications Medication Instructions Recorded Confirmed albuterol sulfate 90 mcg/actuation 1 inhalation inhalation PRN PRN 10/11/19 10/12/23 breath activated powder inhaler Bronchospasm Allergies Allergy/AdvReac Type Severity Reaction Status Date / Time iodine Allergy Severe Dyspnea / Verified 07/08/23 07:56 SOB milk Allergy Severe Swelling Verified 07/08/23 07:56 of Lip/Tongue/Throat shellfish derived Allergy Severe Dyspnea / Verified 07/08/23 07:56 SOB shrimp Allergy Severe Dyspnea / Verified 07/08/23 07:56 SOB tree and shrub pollen Allergy Dyspnea / Verified 07/08/23 07:56 SOB Shrimp Allergy Severe Dyspnea / Uncoded 07/08/23 07:56 SOB Review of Systems Review of Systems: All systems reviewed & are unremarkable except as noted in HPI and below Constitutional: Constitutional: Denies chills, Denies excessive sweating, Denies fatigue, Denies fever(s), Denies headache(s) and Denies weakness Eyes: Eyes: Denies change in vision and Denies photophobia ENT: Denies dysphagia, Denies dizziness, Denies headache(s), Denies lip swelling, Denies nasal congestion, Denies sore throat and Denies tongue swelling Cardiovascular: Cardiovascular: Denies chest pain, Denies syncope, Denies rapid heart rate and Denies dyspnea Respiratory: Respiratory: Denies cough, Denies dyspnea and Denies wheezing Gastrointestinal: Gastrointestinal: Denies abdominal pain, Denies constipation, Denies dysphagia, Denies diarrhea, Denies nausea and Denies vomiting Genitourinary: Genitourinary: Denies hematuria, Denies urinary frequency, Denies dysuria and Denies urinary urgency Musculoskeletal: Musculoskeletal: Denies back pain, Denies myalgias, Denies arthralgias, Denies joint swelling and Denies numbness Integumentary/Breasts: Skin/Breast: Reports pruritus, Reports erythema and Reports rash Comments: The patient has itching, erythema, warmth and tenderness with swelling of the left lower extremity at the ankle extending to just below the knee. Distal pulses intact. No drainage from the left ankle which has erythema. Neurologic: Denies confusion, Denies dizziness, Denies syncope, Denies headache(s), Denies focal weakness, Denies numbness and Denies weakness Psychiatric: Psychiatric: Denies anxiety and Denies confusion Endocrine: Endocrine: Denies excessive sweating and Denies fatigue Hematologic/Lymphatic: Hematologic/Lymphatic: Denies easy bleeding and Denies easy bruising Allergic/Immunologic: Allergic/Immunologic: Denies lip swelling, Denies tongue swelling and Denies wheezing PMFSH Past Medical History Medical History Asthma Miscarriage x1 Vaginal delivery x3 Surgical History Surgical History H/O dilation and curettage [place] teeth removed Family History Family History Grandparent Skin cancer Di
[2023-10-12] MEDS: diphenhydrAMINE HCl INJ 50 MG/ML VIAL IV PUSH (00:38)
[2023-10-12] MEDS: KETOROLAC 30 MG/ML VIAL (*BKC) IV PUSH (00:39)
[2023-10-12] MEDS: methylPREDNISolone SOD SUCC 125 MG VIAL IV PUSH (00:39)
[2023-10-12] MEDS: FAMOTIDINE 20 MG/ISO 50 ML 20 MG/50 ML BAG 100 MG IVPB (00:39)
[2023-10-12] MEDS: LORATADINE 10 MG TABLET 20 MG PO (00:39)
[2023-10-12 00:43] LABS: Basophils Absolute Auto 0.06 K/mm3 (0.00-0.10); Basophils Percent Auto 0.6 % (0.0-1.0); Eosinophils Absolute Auto 0.37 K/mm3 (0.02-0.50); Hematocrit 40.3 % (35.0-49.0); Hemoglobin 13.2 g/dL (12.0-15.0); Immature Granulocyte Absolute 0.02 K/mm3 (0.00-0.00); Immature Granulocyte Percent A 0.2 % (0.0-0.0); Lymphocytes Percent Auto 19.3 % (18.0-42.0); Mean Corpuscular HGB Conc 32.8 g/dL (32-36); Mean Corpuscular Hemoglobin 28.4 pg (27.0-31.0); Mean Corpuscular Volume 86.7 fL (78.0-102.0); Mean Platelet Volume 11.1 fl (9.2-11.8); Monocytes Absolute Auto 0.83 K/mm3 (0.10-0.90); Monocytes Percent Auto 8.9 % (2.0-11.0); Neutrophils Absolute Auto 6.23 K/mm3 (1.70-7.20); Platelet Count Result 280 K/mm3 (150-420); Red Blood Count 4.65 M/mm3 (4.20-5.40); Red Cell Distribution Width 13.1 % (11.6-14.4); White Blood Count 9.3 K/mm3 (4.8-10.8)
--- NOTE | 2023-10-12 00:50 | PC.NURSE ---
patient is resting on stretcher with boyfriend at her side. medicated per MAY. encouraged patient to keep left leg elevated. call light in reach
[2023-10-12 00:58] LABS: Lactic Acid Reflex 1.3 mmol/L (0.4-2.0)
[2023-10-12 01:05] LABS: Alanine Aminotransferase 46 U/L (14-59); Albumin Level 3.6 g/dL (3.4-5.0); Alkaline Phosphatase 70 U/L (46-116); Anion Gap 12 mmol/L (4-12); Aspartate Amino Transferase 24 U/L (15-37); Blood Urea Nitrogen 11 mg/dL (7-18); CRP 1.4 mg/dL (0.0-0.9); Calcium 8.7 mg/dL (8.5-10.1); Carbon Dioxide 25 mmol/L (21-32); Chloride 102 mmol/L (98-108); Estimated CRCL calculation 103 ml/min; Estimated Glomerular Filt Rate > 60; Glucose 85 mg/dL (70-99); Osmolality Calculated 286 mOsm/kg (285-295); Potassium 3.4 mmol/L (3.5-5.1); Sodium 139 mmol/L (136-145); Total Protein 7.2 g/dL (6.4-8.2)
--- NOTE | 2023-10-12 01:08 | PC.NURSE ---
patient is resting on stretcher. boyfriend at her side. reports that she is starting to feel better. informed patient that she would be watched a little longer and er provider would be notified. warm blanket was given. call light in reach
--- NOTE | 2023-10-12 01:48 | PC.NURSE ---
patient reports that she is feeling better and is ready to go home. will notify er provider.
[2023-10-12 01:50] LABS: Erythrocyte Sedimentation Rate 14 mm/hr (0-15)
--- NOTE | 2023-10-12 02:04 | PC.NURSE ---
notified er provider that patient is ready to go home
--- NOTE | 2023-10-12 02:07 | PC.NURSE ---
patient and boyfriend up to the desk. patient wants to go home. informed her that er provider would be in to see her soon.
--- NOTE | 2023-10-12 02:09 | PC.NURSE ---
er provider was called in sleep room and notified that patient wants to go home. will have iv line removed for discharge
[2023-10-12] MEDS: POTASSIUM CHLORIDE 20 MEQ ER TABLET 40 MEQ PO (02:22)
[2023-10-12 02:26] VITALS: BP 148/84; PULSE 77; RESP 18; TEMP 36.6; O2SAT 97
== END 2023-10-12 02:29 | disposition home or self-care (01) ==
PROVIDERS: Emergency Provider Emergency Medicine; PCP Physician Assistant
DX: T63.461A Toxic effect of venom of wasps, accidental (unintentional), initial encounter (principal); E87.6 Hypokalemia; Y92.9 Unspecified place or not applicable
CPT/HCPCS: 36415; 80053; 83605; 85025; 85652; 86140; 96365; 96375; 99284; A9270; J1200; J1885; J2919

== ENCOUNTER 2024-04-12 18:46 | Emergency (ER) | payer MEDICAID, SELFPAY ==
[2024-04-12 18:46] VITALS: BP 120/81; PULSE 116; RESP 20; TEMP 37.4; O2SAT 98
[2024-04-12 18:59] VITALS: O2SAT 98
[2024-04-12 19:36] LABS: Influenza A QL RT-PCR Positive (Negative); Influenza B QL RT-PCR Negative (Negative); RSV RNA, RT-PCR Negative (Negative); SARS-CoV-2 RNA PCR Negative (Negative)
--- NOTE | 2024-04-12 19:45 | ED_ITS ---
HPI - URI/Sore Throat General Chief Complaint: Upper Respiratory Infection Stated Complaint: flu symptoms Time Seen by Provider: 04/12/24 18:50 Source: patient and family Mode of arrival: ambulatory Limitations: no limitations History of Present Illness HPI Narrative: this is a 29-year-old female who presents with cough congestion with no shortness of breath no audible wheezing no fever chills no nausea vomiting or abdominal pain. MD elicited complaint: cough, rhinorrhea and nasal congestion Onset (ago): day(s) Severity: moderate Related Data Home Medications ?Medication ?Instructions ?Recorded ?Confirmed ?Last Taken ?Type albuterol sulfate 90 mcg/actuation 1 inhalation inhalation PRN PRN 10/11/19 10/12/23 10/05/21 History breath activated powder inhaler Bronchospasm Allergies Allergy/AdvReac Type Severity Reaction Status Date / Time iodine Allergy Severe Dyspnea / Verified 04/12/24 19:01 SOB milk Allergy Severe Swelling Verified 04/12/24 19:01 of Lip/Tongue/Throat shellfish derived Allergy Severe Dyspnea / Verified 04/12/24 19:01 SOB shrimp Allergy Severe Dyspnea / Verified 04/12/24 19:01 SOB tree and shrub pollen Allergy Dyspnea / Verified 04/12/24 19:01 SOB Shrimp Allergy Severe Dyspnea / Uncoded 04/12/24 19:01 SOB Review of Systems Review of Systems: All systems reviewed & are unremarkable except as noted in HPI and below PMFSH Past Medical History Medical History Asthma Miscarriage x1 Vaginal delivery x3 Surgical History Surgical History H/O dilation and curettage [place] teeth removed Family History Family History Grandparent Skin cancer Diabetes mellitus Hyperlipidemia Lung cancer Hypertension Bone spur Mother Skin cancer Social History Social History Smoking status: Never smoker Tobacco type: cigarettes Second hand tobacco smoke exposure: No Additional smoking assessment comments: 1-2 cigarettes 2-3 days per week when at work Alcohol intake: never Substance use: never Gender identity (if verbalized by the patient): Female Spiritual care concerns: No Exam Const: General: healthy appearing and no acute distress Nutritional Appearance: well nourished Orientation/consciousness: patient oriented x3 Limitations: no limitations HENMT: Head: normal to inspection Mouth: Yes moist mucous membranes Eyes: Conjunctivae: conjunctivae normal Neck: Neck: normal visual inspection and no lymphadenopathy Chest: Chest palpation & inspection: normal inspection of the chest Resp: Effort & Inspection: normal respiratory effort Auscultation: clear to auscultation bilaterally GI: GI Palp: Yes Soft to palpation Auscultation: normal bowel sounds Urinary Catheter: Urinary Catheter: patent and draining Course Course Emergency Course: Influenza positive, patient received Tamiflu. Vital Signs Vital signs: Vital Signs Temperature 37.4 C 04/12/24 18:46 Pulse Rate 116 H 04/12/24 18:46 Respiratory Rate 20 04/12/24 18:46 Blood Pressure 120/81 04/12/24 18:46 Pulse Oximetry 98 04/12/24 18:46 Oxygen Delivery Room Air 04/12/24 18:46 Temperature 37.4 C 04/12/24 18:46 Pulse Rate 116 H 04/12/24 18:46 Respiratory Rate 20 04/12/24 18:46 Blood Pressure 120/81 04/12/24 18:46 Pulse Oximetry 98 04/12/24 18:59 Oxygen Delivery Room Air 04/12/24 18:59 MDM - URI/Sore Throat Lab Data Labs: Lab Results 04/12/24 Range/Units 18:57 Influenza A (RT-PCR) Positive A (Negative) Influenza B (RT-PCR) Negative (Negative) RSV (RT-PCR) Negative (Negative) SARS-CoV-2 RNA (RT-PCR) Negative (Negative) Critical Care Time Critical Care Time Critical Care Time: No Discharge Plan Discharge Clinical Impression: Influenza Patient Disposition: Home, Self-Care Condition: Stable Instructions: Antibiotic Form, Influenza (ED) Additional Instructions: Advised to take medication as prescribed, drink plenty of fluids can take Tylenol or Motrin as needed and follow with primary if symptoms persist or worsen. Patient Language: Luxembourgish Prescriptions: New oseltamivir [Tamiflu] 75 mg capsule 75 mg PO Q12H 5 Days Qty: 10 0RF No Action epinephrine [EpiPen 2-Manish] 0.3 mg/0.3 mL auto-injector 0.3 mg IM ONCE PRN (Reason: anaphylaxis) Qty: 2 0RF Rx Instructions: do not exceed 12 doses per 24 hrs loratadine 10 mg capsule 20 mg PO DAILY 7 Days Qty: 14 0RF albuterol sulfate 90 mcg/actuation aerosol powdr breath activated 1 inhalation INHALATION PRN PRN (Reason: Bronchospasm) Follow-up/Referrals: Ariel,ROSETTA Zamudio [Primary Care Provider] - Time of Disposition: 19:48
[2024-04-12] MEDS: OSELTAMIVIR PHOSPHATE 75 MG CAPSULE PO (19:57)
== END 2024-04-12 20:05 | disposition home or self-care (01) ==
PROVIDERS: Emergency Provider Emergency Medicine; PCP Physician Assistant
DX: J11.1 Influenza due to unidentified influenza virus with other respiratory manifestations (principal); Z20.822 Contact with and (suspected) exposure to COVID-19
CPT/HCPCS: 87637; 99283; A9270

== ENCOUNTER 2024-09-30 00:22 | Emergency (ER) | payer OTHER, SELFPAY ==
[2024-09-30 00:22] VITALS: BP 126/73; PULSE 80; RESP 18; TEMP 36.4; O2SAT 97
--- OUTSIDE RECORDS SUMMARY | 2024-09-30 00:24 | XMS_ITS | Continuity of Care Document ---
Author Organization [facility] Address [address] [place] [address] Phone Care Team Providers Care Truck Caterer Name Role Phone Unavailable Unavailable Unavailable Advance Directives Directive Yes / No Effective Date File Name No Information Encounters Encounter Description Practice Location Reason(s) For Visit Diagnoses Date Provider Providers Copied on Encounter [facility], [address] [facility], [place], [place], [id number], [place] tel:[phone] [facility] No Information 4 No Information Referring Provider: NHAN BRADEN, [address] [place] [address],[place], [address]. tel:[phone] Family History Family Member Type Diagnosis Age At Onset No Information Payers Payer name Insurance type Covered alliance party ID Authoralysona liam(s) [facility] [id number] Social History Type Description Quantity Date Captured Comments Sex Female Smoking Status No Information Chief Complaint And Reason For Visit No Information History Of Present Illness Encounter Date Complaint History Of Prese nt Illness No Information Instructions Date Instruction Additional Infor mation No Information Assessments Type Assessment Date No Information
--- OUTSIDE RECORDS SUMMARY | 2024-09-30 00:24 | XMS_ITS | Clinical Summary ---
Author Organization [facility] Address [address] [place] [address] Phone Care Team Providers Care Director Marketing Name Role Phone Dov George Primary Care Provider [phone] Allergies Active Allergy Reactions Criticality Noted Date Comments Shellfish Allergy Anaphylaxis 10/27/2017 Medications ibuprofen (MOTRIN) 200 MG Tablet Take 200 mg by mouth every 6 hours as needed. Active Social History Tobacco Use Types Packs/Day Years Used Date Smoking Tobacco: Every Day Cigarettes Smokeless Tobacco: Never Alcohol Use Standard Drinks/Week Comments No 0 (1 standard drink = 0.6 oz pur e alcohol) Comments No Sex and Gender Information Value Date Recorded Sex Assigned at Not on file Legal Sex Female 10:23 PM CDT Gender Identity Not on file Sexual Orientation Not on file Last Filed Vital Signs Vital Sign Reading Time Taken Comments Blood Pressure 122/79 01/08/2021 2:15 AM CDT Pulse 93 01/08/2021 2:38 AM CDT Temperature 36.6 C (97.9 F) 01/08/2021 12:49 AM CDT Respiratory Rate 18 01/08/2021 12:49 AM CDT Oxygen Saturation 98% 01/08/2021 2:38 AM CDT Inhaled Oxygen Concentration - - Weight 85.3 kg (188 lb) 01/08/2021 12:49 AM CDT Height 162.6 cm (5' 4) 01/08/2021 12:49 AM CDT Body Mass Index 32.27 01/08/2021 12:49 AM CDT Plan of Treatment Health Maintenance Due Date Last Done Comments Hepatitis C Virus (HCV) Screening 1995 Human Papillomavirus (HPV) Immunization (3 - 2-dose series) 02/09/2007 11/17/2006, 07/26/2006 SARS-COV-2 Immunization ( season) 2023 Influenza Immunization (#1) 2024 01/01/2014 Respiratory Syncytial Virus (RSV) Immunization (Adult) (1 - 1-dose 75+ series) 2070 Hepatitis B Immunization Completed 997, 1995, 1995 DTaP/Tdap/Td Immunization Discontinued 2005, 01/12/2002, 09/26/1996, Additional history exists TdaP Immunization Completed 11/19/2005 Meningococcal Immunization (ACWY) Completed 01/01/2014, 11/17/2006 Pneumococcal Immunization Combined Aged Out No longer eligible based on patient's age to complete this topic Rotavirus Immunization Aged Out No lo nger eligible based on patient's age to complete this topic Insurance [place] [address] [place] [address] Care Teams Director Marketing Relationship Specialty Start Date End Date Dov George PAC [address] [place] [id number] PCP - General Physician Auto Transmission Specialist 10/27/17
--- OUTSIDE RECORDS SUMMARY | 2024-09-30 00:24 | XMS_ITS | Data Portability ---
Author Organization [facility] Address [address] [place] [address] [place] [address] Care Team Providers Care [employer] Manufacturer Name Role Phone NILES GEORGE Primary Care Provider Assessment Encounter Date Assessment Date Assessment LastModified by Organization Details LastModified Time 11/04/2021 11/04/2021 Normal exam May resume normal activities contraceptive plan-- paragard yelena with preg test day of FU for WWE 2 mos [email or web address] Not available 11/04/2021 13:23:34 Plan of Treatment Reminders Order Date Submit Date Provider Last Modified By Organization Details Last Modified Time Details Appointments None recorded. Lab test, urine 2021 022 [address], [address], [place], [address], 16:23:37 Referral None recorded. Procedures None recorded. Surgeries salpingecto my, laparoscopi c (SURG) 2023 024 [facility], [place], [address], 4 14:38:13 Imaging None recorded. Medication Orders Bactrim DS 800 mg-160 mg tablet 2021 022 [id number], [address], [place], [place], [id number], 12:08:29 Patient TargetsNo targets recorded. Patient InstructionsNo instructions recorded. Reason for Referral None Reported. Results Created Date Observation Date Name Description Value Unit Range Abnormal Flag Note LastModifiedBy Organization Detail LastModifiedTime 11/14/19 22 11/13/2021 pregn thomas test, urine HCG negati ve Not Available [facility] [address], [place], [address], 11/13/2021 16:23:22 11/20/19 22 11/19/2021 CT/GC AND TRICH OMONA S VAGIN LIA (RRNA ), SWAB chlamydia trachomatis, PCR Negati ve negati ve Not Available [facility] [address] [place], [address], 11/20/2021 17:05:24 11/20/19 22 11/19/2021 CT/GC AND TRICH OMONA S VAGIN LIA (RRNA ), SWAB neisseria gonorrhoeae, PCR Negati ve negati ve Not Available [facility] [address] [place], [address], 11/20/2021 17:05:24 11/20/19 22 11/19/2021 CT/GC AND TRICH OMONA S VAGIN LIA (RRNA ), SWAB trichomonas vaginalis ribosomal RNA (rrna) Negati ve negati ve Not Available [facility] [address] [place], [address], 11/20/2021 17:05:24 Result Notes None recorded. Problems Name Problem SNOMED Code Status Onset Date Resolution Date Notes Provider Name and Address Organization Details Recorded Time Transien t hyperten gianni of pregnanc y - delivere d 287149822 Completed Madalyn fernández [facility] 0 11:39:21 Low lying placenta 275418682 Completed 201911/01/2019 resolved Madalyn fernádnez [facility] 0 11:39:21 Asthma 627537780 Completed Amada santa [facility], [facility] 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 2 14:28:21 Group B Streptoc occus carrier 58165301571 03 Completed 2021 Amada Addison [facility] null, [facility] 2 14:28:21 Pregnanc y 80608183 Completed 201902/07/2020 Sangeeta Spence [facility] 2 14:51:23 Problem Notes None recorded. Procedures Surgical History Date Name Laterality Status Provider Name and Address Organization Details Recorded Time 11/14/19 22 IUD Insertion completed Lindsey Ritchie AMADEO- [address], [place], [address], [facility] 11/13/2021 12:52:27 07/04/19 20 Date of Last Pap Smear completed Margot [facility] 07/04/2019 13:11:20 03/21/19 19 Dilation and Curettage completed [facility] 08/31/2021 16:01:23 03/21/18 90 extraction of wisdom tooth completed [facility] 08/31/2021 16:01:49 Imaging Results None recorded. Procedure Notes None recorded. Medical Equipment None Reported. Allergies Allergen ID Allergen Name Allergen Category Reaction Reaction Severity Criticality Documentation Date Start Date Code Code System Note Provider Name and Address Organization Details Recorded Time 174 cow milk allergeni c extract food,medi cation Not available Not available Not available 07/04/2019 29503 5 RxNorm Margot Bal [facility] 0 13:09:54 175 shrimp allergeni c extract food Not available Not available Not available 07/04/2019 52905 2 RxNorm Margot Bal [facility], [facility] 0 13:10:04 45107 iodine medicatio n Not available Not available Not available 06/30/2021 5933 RxNorm Sangeeta Spence [facility] 2 18:11:20 25481 shellfish derived food,medi cation Not available Not available Not available 06/30/2021 00973 UNK Sangeeta Spence [facility], [facility] 2 18:11:37 Medications Name Sig Start Date Stop Date Status Note LastModified by Organization Details LastModified Time ondansetr on HCl 4 mg tablet TAKE 1 TABLET BY MOUTH EVERY 6 HOURS NEEDED FOR NAUSEA OR VOMITING 11/04 completed Not Available Not Available Not Available sulfameth oxazole 800 mg-trimet hoprim 160 mg tablet TAKE 1 TABLET BY MOUTH EVERY 12 HOURS WITH MEALS FOR 5 DAYS 05/22 completed Not Available Not Available Not Available Advair Diskus 500 mcg-50 mcg/dose powder for inhalatio n USE 1 INHALATI ON BY MOUTH TWICE DAILY 11/04 completed Not Available Not Available Not Available montel[address] [facility] 10 mg tablet take 1 tablet by oral route every day in the evening 11/04 completed Prescrib ed Elsewher e: Yes Loca tion: [facility] odify By: abena [facility]oto ncounter DateTime : 02/14/20 18 01:00:00 PM Not Available Not Available Not Available albuterol sulfate HFA 90 mcg/actua tion aerosol inhaler INHALE 2 PUFFS BY MOUTH EVERY 4 HOURS NEEDED active Not Available Not Available No t Available intrauter ine device (IUD) Take by intraute rine route. 2021 active Paraguar d IUD Not Available Not Available Not Available Ortho-Cyc lida (28) 0.25 mg-35 mcg tablet take 1 tablet by oral route every day 08/07 completed Prescrib ed Elsewher e: No Locat ion: [facility] odify By: td samson Encdalia nter DateTime : 12/21/19 10:30:00 AM Not Available Not Available Not Available mont[address] 08/31 completed Not Available Not Available Not Available 11/04 completed Not Available Not Available Not Available ProAir HFA 11/04 completed Not Available Not Available Not Available Nexplanon 68 mg subdermal implant insert 1 not specifie d by intramus cular route every time for 3 years 12/29 completed Prescrib ed Elsewher e: No Locat ion: [facility] odify By: tmcindy martinezunter DateTime : 06/21/19 01:00:00 PM Not Available Not Available Not Available My Way 1.5 mg tablet TAKE 1 TABLET BY MOUTH FOR 1 DOSE 11/04 completed Not Available Not Available Not Available fluticaso ne 113 mcg-salme terol 14 mcg/actua tion breath activated powdr inhale 1 puff by inhalati on route 2 times every day approxim ately 12 hours apart at the same time each day 11/04 completed Prescrib ed Elsewher e: Yes [facility] By: dmraminata Coto ncounter DateTime : 02/14/20 01:00:00 PM Not Available Not Available Not Available Vitals Date Recorded Body height Body mass index (BMI) Body weight Systolic And Diastolic Provider Name and Address Organization Details Last Updated DateTime 05/23/2023 162.56 cm 38.1 kg/m2 615886.51 g 118/82 mm[Hg] Corie Parada [facility] 05/23/2023 12:07:45 Date Recorded Body weight Provider Name an d Address Organization Details Last Updated DateTime 11/04/2021 29284.6266 g Amada Wilde [facility] 11/06/2021 14:28:23 Date Recorded Body height Body mass index (BMI) Systolic And Diastolic Provider Name and Address Organization Details Last Updated DateTime 11/04/2021 162.56 cm 30.9 kg/m2 120/82 mm[Hg] Nicole Carpio [facility] 11/04/2021 12:54:14 Date Recorded Body height Body mass index (BMI) Body weight Systolic And Diastolic Provider Name and Address Organization Details Last Updated DateTime 11/13/2021 162.56 cm 31.4 kg/m2 86231.4 g 110/78 mm[Hg] [facility] 11/13/2021 12:25:23 Date Recorded Body height Body mass index (BMI) Body weight Systolic And Diastolic Provider Name and Address Organization Details Last Updated DateTime 11/19/2021 162.56 cm 31.4 kg/m2 17275.4 g 110/70 mm[Hg] [facility] 11/19/2021 11:05:48 Date Recorded Body height Systolic And Diastolic Provider Name and Address Organization Details Last Updated DateTime 12/25/2021 162.56 cm 102/68 mm[Hg] [facility] 12/25/2021 15:08:08 Social History Question Answer Notes LastModified by Organizat ion Details LastModified Time Tobacco Smoking Status Current Every Day [email or web address] 07/01/2021 14:31:32 Do You Have An Advance Directive? No Information not available 07/01/2021 If You Are , What Was Your Level Of Alcohol Consumption Prior To ? Occasional Information not available 07/01/2021 How Many Years Have You Consumed Alcohol? 10 Information not available 07/01/2021 Are You Blind Or Do You Have Difficulty Seeing? No Information not available 07/01/2021 What Is Your Level Of Caffeine Consumption? Moderate Information not available 07/01/2021 How Much Tobacco Do You Chew? None Information not available 07/01/2021 In The 14 Days Before Symptom Onset, Have You Had Close Contact With A Laboratory-confir med COVID-19 While That Case Was Ill? No Information not available 07/01/2021 In The 14 Days Before Symptom Onset, Have You Had Close Contact With A Person Who Is Under Investigation For COVID-19 While That Person Was Ill? No Information not available 07/01/2021 Have You Been To An Area Known To Be High Risk For COVID-19? No Information not available 07/01/2021 Are You Deaf Or Do You Have Serious Difficulty Hearing? No Information not available 07/01/2021 What Type Of Diet Are You Following? REGULAR Information not available 07/01/2021 What Is The Highest Grade Or Level Of School You Have Completed Or The Highest Degree You Have Received? [id number] Information not available 07/01/2021 Are There Any Guns Present In Your Home? Yes Information not available 07/01/2021 What Was The Date Of Your Most Recent Tobacco Screening? 08/31/2021 [email or web address] Information not available 08/31/2021 Do You Use Protection During Sex? No Information not available 07/01/2021 Do You Use Your Seat Belt Or Car Seat Routinely? Yes Information not available 07/01/2021 Do You Have Smoke And Carbon Monoxide Detectors In Your Home? Yes Information not available 07/01/2021 How Much Tobacco Do You Smoke? No Information not available 07/01/2021 Smoking Pre- Yes Information not available 07/01/2021 Do You Use Sunscreen Routinely? No Information not available 07/01/2021 Have You Used IV Drugs? No Information not available 07/01/2021 Do You Have Difficulty Walking Or Climbing Stairs? No [email or web address] Information not available 08/31/2021 Sex: Unknown Functional Status Question Answer Note LastModified by Organizat ion Details LastModified Time Do you use any illicit or recreational drugs? No Information not available 07/01/2021 What is your level of alcohol consumption? None [email or web address] Information not available 08/31/2021 Are you able to walk? YESWOREST Information not available 07/01/2021 Are you able to care for yourself? 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 No [email or web address] Information not available 08/31/2021 What is your exercise level? Moderate [id number] Information not available 01/22/2020 Mental Status Question Answer Note LastModified by Organization D etails LastModified Time Do you feel stressed (tense, restless, nervous, or anxious, or unable to sleep at night)? [id number] [email or web address] Information not available 07/01/2021 Family History Relationship Description Onset Age of this Age Resolved Age Notes LastModified by Organization Details LastModified Time Mother Asthma [email or web address] Not available 07/04/2019 14:19:48 Maternal Grandmother Diabetes mellitus [email or web address] Not available 07/03 14:20:34 Maternal Grandmother Malignant neoplasm of lung [email or web address] Not available 07/03 14:21:17 Paternal Grandfather Hypercholest erolemia [email or web address] Not available 07/03 14:20:58 Paternal Grandmother Neoplasm of ovary [email or web address] Not available 2021 14:29:03 Sister Asthma [email or web address] Not available 07/04/2019 14:21:51 Maternal Uncle Asthma [email or web address] Not available 020 14:22:00 Maternal Uncle Diabetes mellitus [email or web address] Not available 07/03 14:22:10 Medical History Condition Response Allergies (Food, seasonal, environmental ) Y Other Y Drug/Latex Allergies/Reactions Y Blood Transfusion N Breast Cancer N Dermatologic Disorders N Lung Disease N Defects or Inherited Disease N Breast Problem N Gestational Diabetes N Hematologic disorders N Anesthesia Complications N History of STI N Deep Vein Thrombosis N Polycystic ovary syndrome N Anxiety Disorder N Autoimmune disease N Arthritis N Polyps N Infertility N Acid Reflux (GERD) N History of abnormal pap N Cancer N Varicosities N Stroke N Neurologic/Epilepsy N Endometriosis N High Cholesterol N Fibromyalgia N Headaches N Kidney Disease N Heart Problems N Thyroid Problems N Kidney or Bladder Problems N GI Problems N Eating Disorder N Anemia N Art (IVF or FET) N Psychiatric Illness N Ovarian Cancer N Diabetes N Pulmonary (TB, Asthma) Y Hepatitis/Liver Disease N No Past Medical History N Eczema N Urinary Tract Infection N Abuse/Domestic Violence N Asthma Y Trauma/Violence N Depression/ depression N Heart Disease N Pre-Eclampsia N Hypertension N Osteoporosis N Thrombophilias N Gynecological History Statement/Question Response Abnormal Pap N Flow Heavy Date of LMP 04/29/2023 On BCP's at Conception? Y N Was last menstrual period normal N STIs/STDs N HPV Vaccine N Duration of Flow (days) 4 Current Control Method IUD Age at First Child 18 Are cycles usually normal N Sexually Active? Y Menses Monthly N Age of first menstrual cycle 11 Date of Last Pap Smear 07/04/2019 Sexual Problems? N LMP Definite N Obstetrics History GPAL:G 6 P 4 0 2 4 Type Value Full Term 4 Spontaneous 2 Living 4 Total 6 Past Encounters Encounter ID Performer Location Encounter Start Date Encounter Closed Date Diagnosis/Indication Diagnosis SNOMED-CT Code Diagnosis ICD10 Code Diagnosis Note [id number] Tosin Song CNM [facility] [address] [address] 07/04/2019 12:32:13 07/05/2019 16:06:34 Missed period 87430339 N92.5 Screening for malignant neoplasm of cervix 898607230 Z12.4 Z11.3 [id number] Reginaldo Guevara MD [facility] [address] [address] 07/12/2019 12:22:36 07/12/2019 16:52:45 screening 730265744 Z36.87 [id number] Milli Mackey MD [facility] [address] [address] 08/16/2019 13:45:54 08/16/2019 16:25:25 Normal 78886832 Z34.91 [id number] Reginaldo Guevara MD [facility] [address] [address] 09/07/2019 16:28:57 09/11/2019 03:50:27 [id number] Reginaldo Guevara MD [facility] [address] [address] 09/14/2019 11:58:13 09/17/2019 13:36:36 Routine care 325914307 Z34.82 screening 2437 06902 Z36.87 [id number] Reginaldo Guevara MD [facility] [address] [address] 09/14/2019 12:44:55 09/14/2019 13:31:11 Uncertain viability of 683830502 O36.80X9 Z3A.17 [id number] Reginaldo Guevara MD [facility] [address] [address] 10/04/2019 15:11:35 10/04/2019 16:31:10 screening for malformation 522756647 Z36.3 [id number] Chelsea Irving [facility] [address],[place] [address] 10/04/2019 15:11:53 10/04/2019 17:17:52 Routine care 469753684 Z34.92 [id number] Reginaldo Guevara MD [facility] [address] [address] 10/11/2019 13:57:04 07/22/2020 15:37:25 [id number] Reginaldo Guevara MD [facility] [address] [address] 11/01/2019 14:12:38 11/01/2019 16:09:12 screening 643788778 Z36.2 [id number] MD Norberto Ingram [address] [address] 06/23/2021 14:28:47 06/23/2021 17:09:54 screening 607071131 Z36.2 [id number] MD Norberto Ingram [address] [address] 07/01/2021 14:10:51 07/01/2021 15:21:53 Routine care 281483298 Z34.82 [id number] MD Norberto Ingram [address],[place] [address] 07/09/2021 15:44:44 07/09/2021 16:42:34 Uterine size for dates discrepancy 608488270 O26.842 Z03.75 Z3A.26 [id number] MD Norberto Best [address],[place] [address] 07/22/2021 15:55:32 07/22/2021 16:53:26 Cervical incompetence 99094982 O34.33 Z3A.28 [id number] MD Norberto Best [address] [address] 07/22/2021 15:56:03 07/27/2021 15:18:16 Routine care 445117510 Z34.83 [id number] MD Norberto Ingram [address],[place] [address] 08/07/2021 14:37:55 08/07/2021 15:23:39 Routine care 582868833 Z34.82 [id number] Michelle Narvaez MD [facility] [address] [address] 08/19/2021 16:01:07 08/19/2021 16:44:16 Uterine size for dates discrepancy 057469889 O26.843 Z03.75 Z3A.32 [id number] Michelle Narvaez MD [facility] [address] [address] 08/19/2021 16:02:35 08/19/2021 17:21:22 Routine care 438468185 Z34.83 [id number] [facility] [address],[place] [address] 08/31/2021 15:45:20 08/31/2021 16:54:49 Routine care 457795110 Z34.92 [id number] Reginaldo Guevara MD [facility] [address] [address] 09/16/2021 15:18:02 09/16/2021 17:18:28 Routine care 710578500 Z34.82 [id number] Tosin Song, [facility] [address],[place] [address] 09/25/2021 14:04:39 09/25/2021 15:11:16 Routine care 162033088 Z34.93 [id number] Michelle Narvaez MD [facility] [address] [address] 09/29/2021 17:18:44 09/29/2021 18:03:07 Routine care 275746276 Z34.[address] reptococcus carrier 5608608418 103 Z22.330 [id number] Michelle Narvaez MD [facility] [address] [address] 11/04/2021 12:48:45 11/04/2021 13:31:01 [id number] Lindsey Ritchie [facility] [address] [address] 11/13/2021 12:03:27 11/13/2021 13:02:42 Insertion of intrauterine contraceptive device 58490020 Z30.430 She has been counseled on all of the r/b/a of placement of an intrauteri ne device that include but are not limited to uterine perforatio n, injury to cervix, vagina, bladder, and bowel.Risk s of bleeding due to injury or increased irregular bleeding due to progestin effect of the device. Risks of infection would be increased within the first 21 days of placement with concomitan t cervicitis . She understand s that the device will need to be removed in this instance due to increased risk of Pelvic inflammato ry disease. Patient is aware she is at higher risk for STD and if contracted she could lose her fertility. Pt is aware that if occurs that she should contact office immediatel y to rule out ectopic which could be life threatenin g. IUD will also need to be removed and this could cause miscarriag e. Patient also informed that in the event her strings are absent or embedded at the time of removal she may need to have the IUD surgically removed. She was informed of the above and properly consented. IUD placed w/o complicati on. Patient should return to office after next period to check for string placement. Patient to expect irregular bleeding but should be seen in the ED if bleeding increases to soaking a pad an hour for at least 2 hours. She verbalized understand ing. RTO x 6wks string check of bon [id number] Lindsey Ritchie , [facility] [address],[place] [address] 11/19/2021 10:55:23 11/19/2021 11:34:05 Cyst of vulva 34135777 N90.7 Possible infected hair follice in vulvar area seen on examSTD screen updatedWil l send abx & keep IUD string check appt to check in on this unless otherwise indicatedW ill drain it if has not gone down Time spent in visit is a total of 15 mins with at least 50% of visit consisting of counseling and review of plan of care. [id number] Lindsey Ritchie [facility] [address],[place] [address] 12/25/2021 14:55:39 12/25/2021 15:41:04 Intrauterine device check 316632452 Z30.431 Partner can feel strings so they were trimmed today.Exam otherwise WNL Patient is here for 4-6wk IUD string check. She denies complicati ons, pain, or unpleasant side effects. Happy with this control method. Wishes to continue. Time spent in visit is a total of 15 mins with at least 50% of visit consisting of counseling and review of plan of care. [id number] JENNIFER GILMORE MD [facility] [address] [address] 05/23/2023 11:59:10 05/26/2023 17:40:41 Intrauterine contraceptive device in situ 397703050 Z97.5 - IUD strings visualized - recommende d pelvic US to check placement of IUD due to new symptoms, however patient declined as she would like IUD removed when tubal ligation is performed Sterilizat ion requested [id number] Z30.2 - tubal paperwork signed today, discussed permanance of procedure- r/b/a of salpingect marlyn discussed- discussed bilateral salpingect marlyn procedure, patient would like to proceed Health Concerns Section Related Observation LastModified by Organization Detai ls LastModified Time None Recorded Concern Status LastModified by Organization Details LastModified Time None Recorded Advance Directives Directive N: Payers Insurance Date Sequence Insurance Name Policy Number Policy Tracey Covered Member ID Tracey Member ID Guarantor Name 05/21/2023 1 [place] [facility] Shelley Arce [id number] Adolfo Marcialpaz 07/29/2021 1 FOR LIFE () Shelley Arce [id number] Adolfo Marcialpaz 07/31/2021 2 [employer] () Shelley Marcialpaz [id number] Adolfo Marcialpaz Notes Date Note Type Note Provider Name and Address Organization Details Recorded Time 11/04/2021 text/html Patient is a 26yo presenting for a 4 week visit. She had a on 10/06 at 39 weeks [place]. Baby Axton 8-3, doing well Doing well overall. bottlefeeding. Normal lochia. Pain- none. Bowel and bladder function normal. [place] score 11. feels frazzled, but denies depression. had it last and thinks she is doing ok this time. Period- not yet Annual due:now Concerns: none. Wants paragard yelena. Michelle Narvaez MD [address], [place], [address], [facility] 11/04/2021 13:24:37 11/13/2021 text/html Patient presents for IUD insertion. Ana fernández, [facility] 11/13/2021 16:23:50 11/19/2021 text/html Here today for possible vulvar cyst and wants std screening.Noticed it the other day a bump right at the bottom of the opening to the vagina.Noticed this issue this weekNeg Vag d/c, itching, odorNeg pelvic pain FREDERICK Dominguez- [address], [place], [address], [facility] 11/19/2021 11:20:14 12/25/2021 text/html Patient presents for IUD check. JAZMIN Dominguez [address], [place], [address], [facility] 12/25/2021 15:22:37 05/23/2023 text/html Patient presents for IUD string check. Paraguard IUD placed 11/09. Reports heavier cramping and longer periods over the last 6 months, some pain with intercourse in certain positions. Pain is resolved with changing positions. She is also interested in tubal ligation. She is sure that she has completed child bearing and has no desire for future pregnancies. PSH significant for D&C in 2019, otherwise no surgeries. JENNIFER GILMORE MD [address], [place], [address], [facility] 05/26/2023 16:13:00 OBGyn Episode Ob Episode Information Episode Created Date Number of Fetuses Patient Bloodtype Patient rh Status Prepregnancy Weight lbs Domestic Partner Domestic Partner Phone Father Name Culinary Artist Status 07/04/19 20 1 DELETED Tyrell Calculation Initial Tyrell Date Initial Exam Date Initial Exam Provider Initial Ultrasound Date Last Menstrual Period Date Ultra Sound Weeks Gestation 0 Eighteen To Twenty Week Tyrell Update Ultra Sound Date Fundal Height At Umbil Quickening Date Ultra Sound Latest Weeks Gestation Final Tyrell Confirmed By Final Tyrell Confirmed Date Final Tyrell Date Ultra Sound Latest Days Gestation 0 0 Menstrual History Last Menstrual Date Menses Monthly On Bcp Conception Prior Menses Frequency Hcg Plus Date Menarche Onset Age Delivery Information Delivery Date Delivery Type Labor Anesthesia Weeks Gestation Incision Type Labor Labor Length Hrs Delivered By Post Complications Tubal Sterilization Discharge Date Comments 4 42 VINNIE Discharge Information Feeding Method Contraceptive Method Maternal HG B and HCT Levels Ob Episode Information Episode Created Date Number of Fetuses Patient Bloodtype Patient rh Status Prepregnancy Weight lbs Domestic Partner Domestic Partner Phone Father Name Culinary Artist Status 07/04/19 20 1 DELETED Tyrell Calculation Initial Tyrell Date Initial Exam Date Initial Exam Provider Initial Ultrasound Date Last Menstrual Period Date Ultra Sound Weeks Gestation 0 Eighteen To Twenty Week Tyrell Update Ultra Sound Date Fundal Height At Umbil Quickening Date Ultra Sound Latest Weeks Gestation Final Tyrell Confirmed By Final Tyrell Confirmed Date Final Tyrell Date Ultra Sound Latest Days Gestation 0 0 Menstrual History Last Menstrual Date Menses Monthly On Bcp Conception Prior Menses Frequency Hcg Plus Date Menarche Onset Age Delivery Information Delivery Date Delivery Type Labor Anesthesia Weeks Gestation Incision Type Labor Labor Length Hrs Delivered By Post Complications Tubal Sterilization Discharge Date Comments 9 39 Matias Discharge Information Feeding Method Contraceptive Method Maternal HG B and HCT Levels Ob Episode Information Episode Created Date Number of Fetuses Patient Bloodtype Patient rh Status Prepregnancy Weight lbs Domestic Partner Domestic Partner Phone Father Name Culinary Artist Status 07/04/19 20 1 CLOSED Fetus Data First Name Last Name Admitted to NICU Weight (g) Sex Living Outcome Pediatric Complications Fetus ID Race Codes Race Delivery Type 3203.26 [id number] M Full Term 455 Vaginal Delivery Tyrell Calculation Initial Tyrell Date Initial Exam Date Initial Exam Provider Initial Ultrasound Date Last Menstrual Period Date Ultra Sound Weeks Gestation 0 Eighteen To Twenty Week Tyrell Update Ultra Sound Date Fundal Height At Umbil Quickening Date Ultra Sound Latest Weeks Gestation Final Tyrell Confirmed By Final Tyrell Confirmed Date Final Tyrell Date Ultra Sound Latest Days Gestation 0 0 Menstrual History Last Menstrual Date Menses Monthly On Bcp Conception Prior Menses Frequency Hcg Plus Date Menarche Onset Age Delivery Information Delivery Date Delivery Type Labor Anesthesia Weeks Gestation Incision Type Labor Labor Length Hrs Delivered By Post Complications Tubal Sterilization Discharge Date Comments 9 39 Matias Discharge Information Feeding Method Contraceptive Method Maternal HG B and HCT Levels Ob Episode Information Episode Created Date Number of Fetuses Patient Bloodtype Patient rh Status Prepregnancy Weight lbs Domestic Partner Domestic Partner Phone Father Name Culinary Artist Status 07/04/19 20 1 CLOSED Fetus Data First Name Last Name Admitted to NICU Weight (g) Sex Living Outcome Pediatric Complications Fetus ID Race Codes Race Delivery Type 3628.73 6 M Full Term 454 Vaginal Delivery Tyrell Calculation Initial Tyrell Date Initial Exam Date Initial Exam Provider Initial Ultrasound Date Last Menstrual Period Date Ultra Sound Weeks Gestation 0 Eighteen To Twenty Week Tyrell Update Ultra Sound Date Fundal Height At Umbil Quickening Date Ultra Sound Latest Weeks Gestation Final Tyrell Confirmed By Final Tyrell Confirmed Date Final Tyrell Date Ultra Sound Latest Days Gestation 0 0 Menstrual History Last Menstrual Date Menses Monthly On Bcp Conception Prior Menses Frequency Hcg Plus Date Menarche Onset Age Delivery Information Delivery Date Delivery Type Labor Anesthesia Weeks Gestation Incision Type Labor Labor Length Hrs Delivered By Post Complications Tubal Sterilization Discharge Date Comments 4 43 VINNIE Discharge Information Feeding Method Contraceptive Method Maternal HG B and HCT Levels Ob Episode Information Episode Created Date Number of Fetuses Patient Bloodtype Patient rh Status Prepregnancy Weight lbs Domestic Partner Domestic Partner Phone Father Name Culinary Artist Status 07/04/19 20 1 CLOSED Fetus Data First Name Last Name Admitted to NICU Weight (g) Sex Living Outcome Pediatric Complications Fetus ID Race Codes Race Delivery Type , Spontane ous 456 Tyrell Calculation Initial Tyrell Date Initial Exam Date Initial Exam Provider Initial Ultrasound Date Last Menstrual Period Date Ultra Sound Weeks Gestation 0 Eighteen To Twenty Week Tyrell Update Ultra Sound Date Fundal Height At Umbil Quickening Date Ultra Sound Latest Weeks Gestation Final Tyrell Confirmed By Final Tyrell Confirmed Date Final Tyrell Date Ultra Sound Latest Days Gestation 0 0 Menstrual History Last Menstrual Date Menses Monthly On Bcp Conception Prior Menses Frequency Hcg Plus Date Menarche Onset Age Delivery Information Delivery Date Delivery Type Labor Anesthesia Weeks Gestation Incision Type Labor Labor Length Hrs Delivered By Post Complications Tubal Sterilization Discharge Date Comments 9 Discharge Information Feeding Method Contraceptive Method Maternal HG B and HCT Levels Ob Episode Information Episode Created Date Number of Fetuses Patient Bloodtype Patient rh Status Prepregnancy Weight lbs Domestic Partner Domestic Partner Phone Father Name Culinary Artist Status 08/16/19 20 1 A Positive 231 CLOSED Fetus Data First Name Last Name Admitted to NICU Weight (g) Sex Living Outcome Pediatric Complications Fetus ID Race Codes Race Delivery Type [id number] Problems Problem Notes Asthma, Smoking 4 cigs/day d own from 1 ppd Problem Name Start Date End Date Resolution Snomed Code Not e Low lying placenta 10/04/2019 11/01/2019 [id number] [id number] resolved Transient hypertension of - delivered [id number] Tyrell Calculation Initial Tyrell Date Initial Exam Date Initial Exam Provider Initial Ultrasound Date Last Menstrual Period Date Ultra Sound Weeks Gestation 02/22/2020 08/16/2019 07/12/2019 05/18/2019 7 Eighteen To Twenty Week Tyrell Update Ultra Sound Date Fundal Height At Umbil Quickening Date Ultra Sound Latest Weeks Gestation Final Tyrell Confirmed By Final Tyrell Confirmed Date Final Tyrell Date Ultra Sound Latest Days Gestation 0 02/22/20 20 0 Pre- Flowsheet Flowsheet Date 08/16/2019 Rodas Score Blood Edema Fundus Height Fundus Units Glucose Ketones Leukocytes Nitrite Labor Signs Protein Cervic Dilation Cervic Effacement Cervic Station none 12 wks trace Type Weight in lbs Pre/Post Dialysis Refused BP Diastolic BP Location Tested BP Systolic BP Type Fetus Heart Rate Present A 160 Fetus Movement Comments glucose negative EDC 02/21 by sure LMP=7 week U/S. She is using Montelukast and Flovent regularly for asthma + rescue inhaler prn. She just got off steroids for asthma flare. Dr. George manages her asthma. Has cut back smoking from 1 ppd to 4 cigs/day, advised to quit Flowsheet Date 09/07/2019 Rodas Score Blood Edema Fundus Height Fundus Units Glucose Ketones Leukocytes Nitrite Labor Signs Protein Cervic Dilation Cervic Effacement Cervic Station Type Weight in lbs Pre/Post Dialysis Refused BP Diastolic BP Location Tested BP Systolic BP Type Fetus Heart Rate Present Fetus Movement Comments Flowsheet Date 09/14/2019 Rodas Score Blood Edema Fundus Height Fundus Units Glucose Ketones Leukocytes Nitrite Labor Signs Protein Cervic Dilation Cervic Effacement Cervic Station 17 trace Type Weight in lbs Pre/Post Dialysis Refused Weight 231.931816949438 BP Diastolic BP Location Tested BP Systolic BP Type 87 133 Fetus Heart Rate Present A 145 Fetus Movement A No Comments History of gestational hyper tension blood pressures normal Flowsheet Date 09/14/2019 Rodas Score Blood Edema Fundus Height Fundus Units Glucose Ketones Leukocytes Nitrite Labor Signs Protein Cervic Dilation Cervic Effacement Cervic Station Type Weight in lbs Pre/Post Dialysis Refused BP Diastolic BP Location Tested BP Systolic BP Type Fetus Heart Rate Present Fetus Movement Comments Flowsheet Date 10/04/2019 Rodas Score Blood Edema Fundus Height Fundus Units Glucose Ketones Leukocytes Nitrite Labor Signs Protein Cervic Dilation Cervic Effacement Cervic Station Type Weight in lbs Pre/Post Dialysis Refused BP Diastolic BP Location Tested BP Systolic BP Type Fetus Heart Rate Present Fetus Movement Comments Flowsheet Date 10/04/2019 Rodas Score Blood Edema Fundus Height Fundus Units Glucose Ketones Leukocytes Nitrite Labor Signs Protein Cervic Dilation Cervic Effacement Cervic Station trace Type Weight in lbs Pre/Post Dialysis Refused Weight 228.004143618327 BP Diastolic BP Location Tested BP Systolic BP Type 73 R arm 112 sitting Fetus Heart Rate Present Fetus Movement Comments Baseline anatomy today. LLP and incomplete anatomy. Instructed on pelvic rest and will plan to repeat u/s in 4 weeks. Pt doing well. No complaints. Having a boy. Flowsheet Date 10/11/2019 Rodas Score Blood Edema Fundus Height Fundus Units Glucose Ketones Leukocytes Nitrite Labor Signs Protein Cervic Dilation Cervic Effacement Cervic Station Type Weight in lbs Pre/Post Dialysis Refused BP Diastolic BP Location Tested BP Systolic BP Type Fetus Heart Rate Present Fetus Movement Comments Flowsheet Date 11/01/2019 Rodas Score Blood Edema Fundus Height Fundus Units Glucose Ketones Leukocytes Nitrite Labor Signs Protein Cervic Dilation Cervic Effacement Cervic Station Type Weight in lbs Pre/Post Dialysis Refused BP Diastolic BP Location Tested BP Systolic BP Type Fetus Heart Rate Present Fetus Movement Comments Menstrual History Last Menstrual Date Menses Monthly On Bcp Conception Prior Menses Frequency Hcg Plus Date Menarche Onset Age 0205/18/2019 Genetic Screening And Infection History Question Response Note Mental Retardation/Autism false Patient's Age Will Be 35 Years Or Older At Estim ated Date of Delivery false Thalassemia (Lithuanian, Spanish, Mediterranean, Or Background): MCV < 80 false Neural Tube Defect (Meningomyelocele, Spina Bifi da, Or Anencephaly) false Congenital Heart Defect false Down Syndrome false Vinny-Sachs (eg, Baptist, Cajun, Iraqi-[place]) f alse Charlene Disease false Sickle Cell Disease Or Trait () false Hemophilia Or Other Blood Disorders false Muscular Dystrophy false Cystic Fibrosis false Melina's Chorea false Intellectual Disability/Autism false If Yes, Was Person Tested For Fragile X? false Other Inherited Genetic Or Chromosomal Disorder false Maternal Metabolic Disorder (eg, Type 1 Diabetes , PKU) false Patient Or Baby's Father Had A Child With Defects Not Listed Above false Recurrent Loss, Or A Stillbirth false Medications (including Suppl ements, Vitamins, Herbs, OTC Drugs), Illicit/Recreational Drugs, Alcohol false If Yes, Agent(s) And Strength/Dosage false Any Other Genetic History false Live With Someone With TB Or Exposed To TB false Patient Or Partner Has History Of Genital Herpes false Rash Or Viral Illness Since Last Menstrual Perio d false History Of STD, Gonorrhea, Chlamydia, HPV, Syphi lis false Other Infection History false History of HIV false History of Hepatitis false Prior GBS-infected child false Hemoglobinopathy Or Carrier false Other Structural Defect false Recent Travel History Outside of Country false Delivery Information Delivery Date Delivery Type Labor Anesthesia Weeks Gestation Incision Type Labor Labor Length Hrs Delivered By Post Complications Tubal Sterilization Discharge Date Comments [email or web address] Discharge Information Feeding Method Contraceptive Method Maternal HG B and HCT Levels Ob Episode Information Episode Created Date Number of Fetuses Patient Bloodtype Patient rh Status Prepregnancy Weight lbs Domestic Partner Domestic Partner Phone Father Name Culinary Artist Status 04/13/20 22 1 CLOSED Fetus Data First Name Last Name Admitted to NICU Weight (g) Sex Living Outcome Pediatric Complications Fetus ID Race Codes Race Delivery Type 3713.78 45 M true Full Term terminal meconium & gastric aspirate 6 ccs [id number] Vaginal Delivery Problems Problem Notes pt mentioned weight loss 10- 15lbs early pregnancydeclines Tdap Problem Name Start Date End Date Resolution Snomed Code Not e Asthma [id number] Group B Streptococcus carrier 09/28/2021 [id number] Tyrell Calculation Initial Tyrell Date Initial Exam Date Initial Exam Provider Initial Ultrasound Date Last Menstrual Period Date Ultra Sound Weeks Gestation 10/13/2021 07/01/2021 02/20/2021 12/28/2020 6 Eighteen To Twenty Week Tyrell Update Ultra Sound Date Fundal Height At Umbil Quickening Date Ultra Sound Latest Weeks Gestation Final Tyrell Confirmed By Final Tyrell Confirmed Date Final Tyrell Date Ultra Sound Latest Days Gestation 0 [email or web address] 07/01/2021 10/14/19 22 0 Pre- Flowsheet Flowsheet Date 07/01/2021 Rodas Score Blood Edema Fundus Height Fundus Units Glucose Ketones Leukocytes Nitrite Labor Signs Protein Cervic Dilation Cervic Effacement Cervic Station 25 Type Weight in lbs Pre/Post Dialysis Refused Weight 183.629843650138 BP Diastolic BP Location Tested BP Systolic BP Type 74 R arm 118 sitting Fetus Heart Rate Present A 145 Fetus Movement Comments this patient is a 26-year-ol d 6 para 3023 at 25 weeks gestation who presents for transfer of care. She has unremarkable obstetric history. She has term vaginal births x3. She has no complaints. She is on vaccinated. She did not get any genetic testing. She was given recommendations on vaccinations. We did discuss the remainder of her care. Size bigger than dates today on fundal measurement. We will obtain growth ultrasound. Flowsheet Date 07/07/2021 Rodas Score Blood Edema Fundus Height Fundus Units Glucose Ketones Leukocytes Nitrite Labor Signs Protein Cervic Dilation Cervic Effacement Cervic Station Type Weight in lbs Pre/Post Dialysis Refused BP Diastolic BP Location Tested BP Systolic BP Type Fetus Heart Rate Present Fetus Movement Comments Flowsheet Date 07/09/2021 Rodas Score Blood Edema Fundus Height Fundus Units Glucose Ketones Leukocytes Nitrite Labor Signs Protein Cervic Dilation Cervic Effacement Cervic Station Type Weight in lbs Pre/Post Dialysis Refused BP Diastolic BP Location Tested BP Systolic BP Type Fetus Heart Rate Present Fetus Movement Comments Flowsheet Date 07/22/2021 Rodas Score Blood Edema Fundus Height Fundus Units Glucose Ketones Leukocytes Nitrite Labor Signs Protein Cervic Dilation Cervic Effacement Cervic Station Type Weight in lbs Pre/Post Dialysis Refused BP Diastolic BP Location Tested BP Systolic BP Type Fetus Heart Rate Present Fetus Movement Comments Flowsheet Date 07/22/2021 Rodas Score Blood Edema Fundus Height Fundus Units Glucose Ketones Leukocytes Nitrite Labor Signs Protein Cervic Dilation Cervic Effacement Cervic Station neg trace 30 none trace Type Weight in lbs Pre/Post Dialysis Refused Weight 184.371657311599 BP Diastolic BP Location Tested BP Systolic BP Type 72 116 Fetus Heart Rate Present A 145 Fetus Movement A Yes Comments Doing well. Rare contraction s. US today EFW 60%. CL 2.9 with minimal funneling. Precautions given- follow clinically and check cervix if sx. GCT this week. Declines Tdap. Flowsheet Date 08/07/2021 Rodas Score Blood Edema Fundus Height Fundus Units Glucose Ketones Leukocytes Nitrite Labor Signs Protein Cervic Dilation Cervic Effacement Cervic Station 32 Type Weight in lbs Pre/Post Dialysis Refused Weight 187.296300670527 BP Diastolic BP Location Tested BP Systolic BP Type 78 R arm 130 sitting Fetus Heart Rate Present A 145 Fetus Movement Comments no complaints, some pressure , pt. not concerned. Flowsheet Date 08/19/2021 Rodas Score Blood Edema Fundus Height Fundus Units Glucose Ketones Leukocytes Nitrite Labor Signs Protein Cervic Dilation Cervic Effacement Cervic Station Type Weight in lbs Pre/Post Dialysis Refused BP Diastolic BP Location Tested BP Systolic BP Type Fetus Heart Rate Present Fetus Movement Comments Flowsheet Date 08/19/2021 Rodas Score Blood Edema Fundus Height Fundus Units Glucose Ketones Leukocytes Nitrite Labor Signs Protein Cervic Dilation Cervic Effacement Cervic Station neg none 33 none trace Type Weight in lbs Pre/Post Dialysis Refused Weight 184.015367709641 BP Diastolic BP Location Tested BP Systolic BP Type 80 122 Fetus Heart Rate Present A 140 Fetus Movement A Yes Comments Doing well. US today 48% and vertex. GCT wnl. Next visit 3 weeks because out of town. Has questions about dating, answered. Flowsheet Date 08/31/2021 Rodas Score Blood Edema Fundus Height Fundus Units Glucose Ketones Leukocytes Nitrite Labor Signs Protein Cervic Dilation Cervic Effacement Cervic Station neg trace 34 none trace Type Weight in lbs Pre/Post Dialysis Refused Weight 190.988912503607 BP Diastolic BP Location Tested BP Systolic BP Type 77 136 Fetus Heart Rate Present A 146 Fetus Movement A Yes Comments Doing well. Occasional contr actions. Pt is concerned about purple line of dilation. She has a purple like extending from buttocks that is a couple centimeters in length. She is very concerned that she may be dilating. I have discussed risk vs benefit of exam and pt does desire exam. Cervix is ft external and closed internal. Soft and about 30%. Presenting part is ballotable. I am not concerned with her cervix at this point. We did discuss precautions. Flowsheet Date 09/16/2021 Rodas Score Blood Edema Fundus Height Fundus Units Glucose Ketones Leukocytes Nitrite Labor Signs Protein Cervic Dilation Cervic Effacement Cervic Station neg none 35 none trace 2cm 50% -3 Type Weight in lbs Pre/Post Dialysis Refused Weight 189.616793393798 BP Diastolic BP Location Tested BP Systolic BP Type 76 112 Fetus Heart Rate Present A 140 Fetus Movement A Yes Comments Doing fine. Irregular contr actions. GBS done and discussed. Labor precautions. Flowsheet Date 09/25/2021 Rodas Score Blood Edema Fundus Height Fundus Units Glucose Ketones Leukocytes Nitrite Labor Signs Protein Cervic Dilation Cervic Effacement Cervic Station neg trace 36 none trace 2cm Type Weight in lbs Pre/Post Dialysis Refused Weight 193.79144734529 BP Diastolic BP Location Tested BP Systolic BP Type 81 124 Fetus Heart Rate Present A 144 Fetus Movement A Yes Comments patient is having pain, cont ractions, discharge, swelling, and nausea. reviewed precautions, labor, f/u one weekpt taking 3 ibuprofen a day and 1 melatonin, disc not rec due to early closure of ductus arteriosis pt reluctant to stop either medication Flowsheet Date 09/29/2021 Rodas Score Blood Edema Fundus Height Fundus Units Glucose Ketones Leukocytes Nitrite Labor Signs Protein Cervic Dilation Cervic Effacement Cervic Station neg trace 34 none trace 4cm 50% -3 Type Weight in lbs Pre/Post Dialysis Refused Weight 198.723533803038 BP Diastolic BP Location Tested BP Systolic BP Type 77 123 Fetus Heart Rate Present A 145 Fetus Movement A Yes Comments Doing ok, just uncomfortable . Requesting IOL yelena with whomever. She is no longer taking ibuprofen. GBS pos, discussed. Labor precautions given. Flowsheet Date 11/04/2021 Rodas Score Blood Edema Fundus Height Fundus Units Glucose Ketones Leukocytes Nitrite Labor Signs Protein Cervic Dilation Cervic Effacement Cervic Station Type Weight in lbs Pre/Post Dialysis Refused Weight 180.759831131208 BP Diastolic BP Location Tested BP Systolic BP Type 82 120 Fetus Heart Rate Present Fetus Movement Comments Menstrual History Last Menstrual Date Menses Monthly On Bcp Conception Prior Menses Frequency Hcg Plus Date Menarche Onset Age 1012/28/2020 Genetic Screening And Infection History Question Response Note Mental Retardation/Autism false Patient's Age Will Be 35 Years Or Older At Estim ated Date of Delivery false Thalassemia (Lithuanian, Spanish, Mediterranean, Or Background): MCV < 80 false Neural Tube Defect (Meningomyelocele, Spina Bifi da, Or Anencephaly) false Congenital Heart Defect false Down Syndrome false Vinny-Sachs (eg, Baptist, Cajun, Iraqi-[place]) f alse Charlene Disease false Sickle Cell Disease Or Trait () false Hemophilia Or Other Blood Disorders false Muscular Dystrophy false Cystic Fibrosis false [place]'s Chorea false Intellectual Disability/Autism false If Yes, Was Person Tested For Fragile X? false Other Inherited Genetic Or Chromosomal Disorder false Maternal Metabolic Disorder (eg, Type 1 Diabetes , PKU) false Patient Or Baby's Father Had A Child With Defects Not Listed Above false Recurrent Loss, Or A Stillbirth false Medications (including Suppl ements, Vitamins, Herbs, OTC Drugs), Illicit/Recreational Drugs, Alcohol false If Yes, Agent(s) And Strength/Dosage false Any Other Genetic History false Live With Someone With TB Or Exposed To TB false Patient Or Partner Has History Of Genital Herpes false Rash Or Viral Illness Since Last Menstrual Perio d false History Of STD, Gonorrhea, Chlamydia, HPV, Syphi lis false Other Infection History false History of HIV false History of Hepatitis false Prior GBS-infected child false Hemoglobinopathy Or Carrier false Other Structural Defect false Recent Travel History Outside of Country false Delivery Information Delivery Date Delivery Type Labor Anesthesia Weeks Gestation Incision Type Labor Labor Length Hrs Delivered By Post Complications Tubal Sterilization Discharge Date Comments 2 Induce d Regional-Ep idural 39 false Michelle Narvaez MD GBS+ Discharge Information Feeding Method Contraceptive Method Maternal HG B and HCT Levels Ob Episode Information Episode Created Date Number of Fetuses Patient Bloodtype Patient rh Status Prepregnancy Weight lbs Domestic Partner Domestic Partner Phone Father Name Culinary Artist Status 07/02/19 22 1 CLOSED Fetus Data First Name Last Name Admitted to NICU Weight (g) Sex Living Outcome Pediatric Complications Fetus ID Race Codes Race Delivery Type , Spontane ous [id number] Tyrell Calculation Initial Tyrell Date Initial Exam Date Initial Exam Provider Initial Ultrasound Date Last Menstrual Period Date Ultra Sound Weeks Gestation 0 Eighteen To Twenty Week Tyrell Update Ultra Sound Date Fundal Height At Umbil Quickening Date Ultra Sound Latest Weeks Gestation Final Tyrell Confirmed By Final Tyrell Confirmed Date Final Tyrell Date Ultra Sound Latest Days Gestation 0 0 Menstrual History Last Menstrual Date Menses Monthly On Bcp Conception Prior Menses Frequency Hcg Plus Date Menarche Onset Age Delivery Information Delivery Date Delivery Type Labor Anesthesia Weeks Gestation Incision Type Labor Labor Length Hrs Delivered By Post Complications Tubal Sterilization Discharge Date Comments 1 Discharge Information Feeding Method Contraceptive Method Maternal HG B and HCT Levels Ob Episode Information Episode Created Date Number of Fetuses Patient Bloodtype Patient rh Status Prepregnancy Weight lbs Domestic Partner Domestic Partner Phone Father Name Culinary Artist Status 07/01/19 22 1 DELETED Tyrell Calculation Initial Tyrell Date Initial Exam Date Initial Exam Provider Initial Ultrasound Date Last Menstrual Period Date Ultra Sound Weeks Gestation 0 Eighteen To Twenty Week Tyrlel Update Ultra Sound Date Fundal Height At Umbil Quickening Date Ultra Sound Latest Weeks Gestation Final Tyrell Confirmed By Final Tyrell Confirmed Date Final Tyrell Date Ultra Sound Latest Days Gestation 0 0 Menstrual History Last Menstrual Date Menses Monthly On Bcp Conception Prior Menses Frequency Hcg Plus Date Menarche Onset Age Delivery Information Delivery Date Delivery Type Labor Anesthesia Weeks Gestation Incision Type Labor Labor Length Hrs Delivered By Post Complications Tubal Sterilization Discharge Date Comments 0 39 [place] Discharge Information Feeding Method Contraceptive Method Maternal HG B and HCT Levels Ob Episode Information Episode Created Date Number of Fetuses Patient Bloodtype Patient rh Status Prepregnancy Weight lbs Domestic Partner Domestic Partner Phone Father Name Culinary Artist Status 05/23/19 24 1 CLOSED Fetus Data First Name Last Name Admitted to NICU Weight (g) Sex Living Outcome Pediatric Complications Fetus ID Race Codes Race Delivery Type 2806.37 3704 M Full Term 12070 Vaginal Delivery Tyrell Calculation Initial Tyrell Date Initial Exam Date Initial Exam Provider Initial Ultrasound Date Last Menstrual Period Date Ultra Sound Weeks Gestation 0 Eighteen To Twenty Week Tyrell Update Ultra Sound Date Fundal Height At Umbil Quickening Date Ultra Sound Latest Weeks Gestation Final Tyrell Confirmed By Final Tyrell Confirmed Date Final Tyrell Date Ultra Sound Latest Days Gestation 0 0 Menstrual History Last Menstrual Date Menses Monthly On Bcp Conception Prior Menses Frequency Hcg Plus Date Menarche Onset Age Delivery Information Delivery Date Delivery Type Labor Anesthesia Weeks Gestation Incision Type Labor Labor Length Hrs Delivered By Post Complications Tubal Sterilization Discharge Date Comments 0 38 Discharge Information Feeding Method Contraceptive Method Maternal HG B and HCT Levels
--- OUTSIDE RECORDS SUMMARY | 2024-09-30 00:24 | XMS_ITS | Data Portability ---
Author Organization 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 Plan of Treatment Reminders Order Date Submit Date Provider Last Modified By Organization Details Last Modified Time Details Appointments ANY 15 2024 09:45A M Niles George PA-C Not available Not available Not available Lab None recorded. Referral None recorded. Procedures None recorded. Surgeries None recorded. Imaging None recorded. Medication Orders Airsupra 90 mcg-80 mcg/actua tion HFA aerosol inhaler 2024 025 [facility] #[id number], [address], [place], [place], [id number], 09/17/2024 16:52:33 amoxicill in 875 mg tablet 2024 025 [facility] #[id number], [address], [place], [place], [id number], 09/17/2024 16:34:50 Medrol (Manish) 4 mg tablets in a dose pack 2023 025 [facility] #[id number], [address], [place], [place], [id number], 04/20/2024 11:02:32 baclofen 10 mg tablet 2023 024 [facility]202, [address], [place], [place], [id number], 04/20/2024 11:00:45 hydroxyzi ne HCl 25 mg tablet 2022 [facility], [address], [place], [place], [id number], 09/17/2024 16:35:46 buspirone 5 mg tablet 2021 023 [facility] #[id number], [address], [place], [place], [id number], 03/24/2022 15:16:50 Patient TargetsNo targets recorded. Patient Instructions Encounter Date Encounter Id Patient Instructions Last Modified By Organization Details Last Modified Time 03/01/2022 [id number] A healthy lifestyle: care instructions jnanney Not available 03/01/2022 14:55:27 anxiety disorder : care instructions jnanney Not available 03/01/2022 14:52:57 03/24/2022 [id number] anxiety disorder : care instructions jnanney Not available 03/24/2022 15:12:26 08/18/2023 [id number] A healthy lifestyle: care instructions jnanney Not available 08/18/2023 12:33:47 costochondritis: care instructions jnanney Not available 08/18/2023 12:33:47 09/17/2024 [id number] A healthy lifestyle: care instructions jnanney Not available 09/17/2024 16:52:29 Reason for Referral None Reported. Results Created Date Observation Date Name Description Value Unit Range Abnormal Flag Note LastModifiedBy Organization Detail LastModifiedTime Result Notes None recorded. Problems Name Problem SNOMED Code Status Onset Date Resolution Date Notes Provider Name and Address Organization Details Recorded Time Patient encounter status [id number] Active 017 Niles George PA-C Attn: Sophiain g,[address] [facility], [place], [address] , [facility] 0 17:08:25 Notes:Some problems listed i n Documents: #[id number], #[id number] could not be added to this patient's chart. Please review these documents and add these problems to the patient's chart manually as needed. Problem Notes None recorded. Procedures Surgical History Date Name Laterality Status Provider Name and Address Organization Details Recorded Time 03/21/2021 Date of Last Pap Smear completed Stephenie Rajan [place] - [facility] 04/20/2024 11:02:44 Imaging Results None recorded. Procedure Notes None recorded. Medical Equipment None Reported. Allergies No known drug allergies Medications Name Sig Start Date Stop Date Status Note LastModified by Organization Details LastModified Time buspirone 5 mg tablet Take 1 tablet twice a day by oral route for 30 days. 03/24 completed Not Available Not Available Not Available albuterol sulfate 2.5 mg/3 mL (0.083 %) solution for nebulizatio n 2.5 mg by inhalatio n route. 03/11 completed Not Available Not Available Not Available trazodone 50 mg tablet TAKE 1/2 TABLET BY MOUTH EVERY DAY AT BEDTIME active Not Available Not Available No t Available fluconazole 150 mg tablet TAKE 1 TABLET BY MOUTH ONCE 08/17 completed Not Available Not Available Not Available ondansetron HCl 4 mg tablet TAKE 1 TABLET BY MOUTH EVERY 6 HOURS NEEDED FOR NAUSEA AND VOMITING 03/01 completed Not Available Not Available Not Available prednisone 20 mg tablet TAKE 1 TABLET BY MOUTH TWICE DAILY. 04/20 completed Not Available Not Available Not Available penicillin V potassium 500 mg tablet TAKE ONE TABLET BY MOUTH FOUR TIMES DAILY X 7 DAYS 04/20 completed Not Available Not Available Not Available bupropion HCl 100 mg tablet TAKE 1 TABLET BY MOUTH TWICE DAILY 2024 active Not Available Not Available Not Avai lable amoxicillin 875 mg tablet TAKE 1 TABLET BY MOUTH EVERY 12 HOURS FOR 10 DAYS 09/17 completed Not Available Not Available Not Available lorazepam 0.5 mg tablet TAKE 1 TABLET BY MOUTH TWICE DAILY NEEDED FOR ANXIETY active Not Available Not Available No t Available baclofen 10 mg tablet TAKE 1 TABLET BY MOUTH THREE TIMES DAILY NEEDED 04/20 completed Not Available Not Available Not Available cephalexin 500 mg capsule TAKE 1 CAPSULE BY MOUTH 4 TIMES A DAY 03/03 completed Not Available Not Available Not Available oseltamivir 75 mg capsule TAKE 1 CAPSULE BY MOUTH EVERY 12 HOURS FOR 5 DAYS 04/20 completed Not Available Not Available Not Available buspirone 10 mg tablet TAKE 1 TABLET BY MOUTH TWICE DAILY active Not Available Not Available No t Available prednisone 50 mg tablet TAKE 1 TABLET BY MOUTH DAILY 04/20 completed Not Available Not Available Not Available bupropion HCl 75 mg tablet TAKE 1 TABLET BY MOUTH TWICE DAILY 09/17 completed Not Available Not Available Not Available montelukast 10 mg tablet TAKE 1 TABLET BY MOUTH EVERY DAY 03/01 completed Not Available Not Available Not Available hydroxyzine HCl 25 mg tablet TAKE 1 TABLET BY MOUTH FOUR TIMES DAILY NEEDED 2024 active Not Available Not Available Not Avai lable lorazepam 1 mg tablet TAKE 1 TABLET BY MOUTH THREE TIMES DAILY NEEDED FOR ANXIETY OR SLEEP. 04/20 completed Not Available Not Available Not Available epinephrine 0.3 mg/0.3 mL injection, auto-inject or INJECT 0.3 MG INTRAMUSC ULARLY ONCE NEEDED FOR ANAPHYLAX IS. DO NOT EXCEED 12 DOSES PER 24 HOURS. active Not Available Not Available No t Available ibuprofen 600 mg tablet TAKE 1 TABLET BY MOUTH THREE TIMES DAILY WITH FOOD. 04/20 completed Not Available Not Available Not Available methylpredn isolone 4 mg tablets in a dose pack FOLLOW PACKAGE DIRECTION S 04/20 completed Not Available Not Available Not Available albuterol sulfate HFA 90 mcg/actuati on aerosol inhaler INHALE 2 PUFFS BY MOUTH EVERY 4 HOURS NEEDED active Not Available Not Available No t Available loratadine 10 mg tablet TAKE 2 TABLETS BY MOUTH DAILY FOR 7 DAYS 04/20 completed Not Available Not Available Not Available naproxen 500 mg tablet TAKE ONE TABLET BY MOUTH TWICE DAILY WITH MEALS NEEDED FOR PAIN 04/20 completed Not Available Not Available Not Available Benadryl Allergy 25 mg tablet TAKE 1 TABLET BY MOUTH THREE TIMES DAILY NEEDED FOR ALLERGIC REACTION 09/17 completed Not Available Not Available Not Available chlorhexidi ne gluconate 0.12 % mouthwash RINSE AND SWISH WITH 15MLS BY MOUTH OR THROAT FOR 5 MINUTES TWICE DAILY THEN SPIT OUT 04/20 completed Not Available Not Available Not Available Flovent Diskus 100 mcg/actuati on powder for inhalation TAKE 2 PUFFS BY MOUTH TWICE A DAY 04/20 completed Not Available Not Available Not Available My Way 1.5 mg tablet TAKE 1 TABLET BY MOUTH FOR 1 DOSE 08/17 completed Not Available Not Available Not Available AirDuo RespiClick 113 mcg-14 mcg/actuati on breath activated Inhale 1 puff twice a day by inhalatio n route for 30 days. 04/20 completed Not Available Not Available Not Available Qvar RediHaler 40 mcg/actuati on HFA breath activated aerosol Inhale 2 puffs twice a day by inhalatio n route for 30 days. 06/05 completed Not Available Not Available Not Available Airsupra 90 mcg-80 mcg/actuati on HFA aerosol inhaler Inhale 2 inhalatio ns 4 times a day by inhalatio n route as needed. 2024 active Not Available Not Available Not Avai lable Vitals Date Recorded Body height Body mass index (BMI) Body weight Body temperature Oxygen saturation Oxygen saturation in Arterial blood by Pulse oximetry Heart rate Systolic And Diastolic Provider Name and Address Organization Details Last Updated DateTime 3 160.02 cm 35.8 kg/m2 02581.6 6 g 97.8 [degF] 98 % 98 % 78 /min 130/78 mm[Hg] Traci blount MA [facility] 3 15:01:33 Date Recorded Body height Body mass index (BMI) Body weight Oxygen saturation Oxygen saturation in Arterial blood by Pulse oximetry Heart rate Systolic And Diastolic Provider Name and Address Organization Details Last Updated DateTime 5 160.02 cm 38.6 kg/m2 14944.1 4 g 98 % 98 % 67 /min 122/80 mm[Hg] Stephenie Rajan MA [facility] 5 11:05:01 Date Recorded Body height Body mass index (BMI) Body weight Oxygen saturation Oxygen saturation in Arterial blood by Pulse oximetry Heart rate Systolic And Diastolic Provider Name and Address Organization Details Last Updated DateTime 4 160.02 cm 37.3 kg/m2 50514.5 g 100 % 100 % 69 /min 118/66 mm[Hg] Erna Roth MA [facility] 4 12:02:05 Date Recorded Body height Body mass index (BMI) Body weight Oxygen saturation Oxygen saturation in Arterial blood by Pulse oximetry Heart rate Systolic And Diastolic Provider Name and Address Organization Details Last Updated DateTime 5 160.02 cm 37.6 kg/m2 79256.5 8 g 98 % 98 % 93 /min 120/72 mm[Hg] Stephenie Rajan MA [facility] 5 16:35:18 Date Recorded Body weight Body temperature Oxygen saturation Oxygen saturation in Arterial blood by Pulse oximetry Heart rate Body height Body mass index (BMI) Systolic And Diastolic Provider Name and Address Organization Details Last Updated DateTime 2 82941.7 g 97.7 [degF] 97 % 97 % 105 /min 160.02 cm 34.9 kg/m2 122/70 mm[Hg] Traci blount MA [facility] 2 14:44:06 Social History Question Answer Notes LastModified by Organizat ion Details LastModified Time Tobacco Smoking Status Former Smoker 3 cigarettes this week Stephenie Rajan MA null, [place] - [facility] 04/20/2024 11:03:22 Are You Blind Or Do You Have Difficulty Seeing? No Information not available 03/01/2022 What Is Your Level Of Caffeine Consumption? Moderate Information not available 03/03/2020 How Much Tobacco Do You Chew? None Information not available 03/03/2020 In The 14 Days Before Symptom Onset, Have You Had Close Contact With A Laboratory-confi rmed COVID-19 While That Case Was Ill? No Information not available 06/06/2019 If Patient Spent Time In [facility] - Does The Patient Live In [facility]? No Information not available 06/06/2019 In The 14 Days Before Symptom Onset, Have You Had Close Contact With A Person Who Is Under Investigation For COVID-19 While That Person Was Ill? No Information not available 06/06/2019 In The 14 Days Before Symptom Onset, Did The Patient Spend Time In [facility]? No Information not available 06/06/2019 Have You Been To An Area Known To Be High Risk For COVID-19? No Information not available 06/06/2019 What Type Of Diet Are You Following? REGULAR Information not available 03/03/2020 Which Illicit Or Recreational Drugs Have You Used? None Information not available 03/03/2020 Marital Status elías Informatio n not available 06/06/2019 What Was The Date Of Your Most Recent Tobacco Screening? 09/17/2024 Information not available 09/17/2024 How Many Children Do You Have? 4 Information not available 03/01/2022 What Is Your Relationship Status? Information not available 03/01/2022 Do You Have Smoke And Carbon Monoxide Detectors In Your Home? Yes Information not available 03/01/2022 How Much Tobacco Do You Smoke? 0.25 PPD Less Than This Information not available 06/06/2019 General Stress Level High Information not available 03/03/2020 Has Tobacco Cessation Counseling Been Provided? Yes [email or web address] Information not available 08/03/2018 On What Date Was Tobacco Cessation Counseling Provided? 09/17/2024 Information not available 09/17/2024 How Many Years Have You Smoked Tobacco? 2 [email or web address] Information not available 09/15/2016 Sex: Female Functional Status Question Answer Note LastModified by Organizat ion Details LastModified Time Do you use any illicit or recreational drugs? No Information not available 04/20/2024 Do you or have you ever used any other forms of tobacco or nicotine? Yes Information not available 09/17/2024 What is your level of alcohol consumption? Occasional Information not available 03/03/2020 Do you or have you ever used smokeless tobacco? Never used smokeless tobacco Information not available 03/03/2020 Are you able to care for yourself? Yes Information not available 03/01/2022 Do you or have you ever used e-cigarettes or vape? Current user of electronic cigarettes occasional Information not available 03/01/2022 Mental Status Question Answer Note LastModified by Organization D etails LastModified Time Do you feel stressed (tense, restless, nervous, or anxious, or unable to sleep at night)? [id number] Information not available 03/01/2022 Family History Relationship Description Onset Age of this Age Resolved Age Notes LastModified by Organization Details LastModified Time Mother Asthma [email or web address] Not availabl e 09/15/2016 16:27:00 Mother Migraine [email or web address] Not availa ble 09/15/2016 16:27:22 Sister Asthma [email or web address] Not availabl e 09/15/2016 16:27:09 Sister Migraine [email or web address] Not availa ble 09/15/2016 16:27:32 Brother Migraine [email or web address] Not avail able 09/15/2016 16:27:39 Medical History Condition Response Asthma Y Gynecological History Statement/Question Response Date of Last Pap Smear 03/21/2021 Date of LMP 08/28/2024 LMP Approximate Obstetrics History GPAL:G 0 P 0 0 0 0 Immunizations Vaccine Type Date Status Note Provider Nam e and Address Organization Details Recorded Time Tdap 05/13/2018 completed Not Available [facility] 09/17/2024 16:03:18 Past Encounters Encounter ID Performer Location Encounter Start Date Encounter Closed Date Diagnosis/Indication Diagnosis SNOMED-CT Code Diagnosis ICD10 Code Diagnosis Note [id number] MD Yovany Dawkins [facility] [address] [place] [address] 09/15/2016 16:06:32 09/16/2016 13:03:27 History of asthma 514898636 Z87.09 [id number] NADINE Burns [facility] [address] [place] [address] 01/06/2018 15:04:52 01/06/2018 15:50:29 Mild intermittent asthma 240495879 J45.20 [id number] NADINE Burns [address] [place] [address] 01/23/2018 14:22:32 01/23/2018 14:45:50 Mild intermittent asthma 939835866 J45.20 [id number] NADINE Burns [address] [place] [address] 08/03/2018 15:20:49 08/03/2018 16:15:08 Seasonal allergic rhinitis 123929216 J30.2 [id number] Niles George PA-C [facility] [address] [place] [address] 08/18/2018 14:59:37 08/18/2018 15:31:55 Seasonal allergic rhinitis 915445521 J30.2 [id number] Niles George PA-C [facility] [address] [place] [address] 06/06/2019 16:46:49 06/06/2019 17:45:39 Mild intermittent asthma 665306201 J45.20 [id number] Niles George PA-C [facility] [address] [place] [address] 07/19/2019 14:38:25 07/20/2019 08:48:31 History of asthma 127993481 Z87.09 Mild inter mittent asthma 873829554 J45.20 [id number] Андрей Eid MD [facility] [address] [place] [address] 03/03/2020 11:31:46 03/03/2020 15:28:58 Moderate persistent asthma 144068558 J45.40 [id number] Niles George PA-C [facility] [address] [place] [address] 03/01/2022 14:30:30 03/01/2022 14:57:49 Generalized anxiety disorder 07903254 F41.1 [facility] 664572625 E66 .3 [id number] Niles George PA-C [facility] [address] [place] [address] 03/24/2022 14:53:26 03/24/2022 15:21:30 Generalized anxiety disorder 82360521 F41.1 Mixed anxi ety and depressive disorder 695080814 F41.8 [id number] Андрей Eid MD [facility] [address] [place] [address] 08/18/2023 11:44:56 08/19/2023 16:53:21 Costal chondritis 15703552 M94.0 [facility] 043167950 E66 .3 [id number] Андрей Eid MD [facility] [address] [place] [address] 04/20/2024 10:45:38 04/24/2024 11:35:17 Recurrent acute maxillary sinusitis 8191486591 6791807 J01.01 [id number] Андрей Eid MD [facility] [address] [place] [address] 09/17/2024 16:01:51 09/18/2024 15:11:45 Moderate persistent asthma 940690490 J45.40 Obese class II 579806138 1 36523 E66.812 Mixed anxi ety and depressive disorder 773044551 F41.8 seeing counseling and taking meds Health Concerns Section Related Observation LastModified by Organization Detai ls LastModified Time None Recorded Concern Status LastModified by Organization Details LastModified Time None Recorded Advance Directives Directive None Recorded Payers Insurance Date Sequence Insurance Name Policy Number Policy Tracey Covered Member ID Tracey Member ID Guarantor Name 05/10/2018 1 *SELF PAY* Ka yla Aggieremiguel 09/18/2024 1 [place] [facility] Shelley Schreier [id number] Shelley Schreier 04/20/2024 1 [place] [facility] Shelley Schreier [id number] Shelley Schreier 04/20/2024 1 [place] [facility] [id number] [facility] Notes Date Note Type Note Provider Name and Address Organization Details Recorded Time 03/01/2022 text/html anxiety is getti ng worse...needs help... Niles George PA-C Attn: [address] [place], [address], [facility] 03/01/2022 14:55:49 03/24/2022 text/html buspirone follow up...not working well...anger side effects...hydroxyz ine wants bumped a little Niles George PA-C Attn: [address] [facility], [place], [address], [facility] 03/24/2022 15:17:15 08/18/2023 text/html was seen in ER f or costchondritis...l ost her meds somewhere...see ER note..patient appears today to be in some discomfort... Niles George PA-C Attn: [address], [place], [address], [facility] 08/18/2023 12:34:38 04/20/2024 text/html had Flu last week...has sinus pain today..check up today... Niles George PA-C Attn: [address] [facility], [place], [address], [facility] 04/20/2024 11:19:36 09/17/2024 text/html needs asthma inhaler refills has been 6 months...well controlled was seeing asthma specialist..wants info on airsupra has experienced some asthma flare ups Niles George PA-C Attn: [address] [facility], [place], [address], [facility] 09/17/2024 16:54:25 OBGyn Episode No OBEpisode recorded.
--- NOTE | 2024-09-30 00:29 | PC.NURSE ---
DR KNIGHT AT THE BEDSIDE
--- NOTE | 2024-09-30 00:41 | ED_ITS ---
HPI - General Adult General Chief complaint: Unspecified Stated complaint: Earring Back stuck in Ear Time Seen by Provider: 09/30/24 00:35 Source: patient Mode of arrival: ambulatory Limitations: no limitations History of Present Illness HPI narrative: patient with embedded earring in the right ear lobe with some no drainage no warmth or tenderness no pain no fever chills Onset (ago): day(s) Related Data Home Medications ?Medication ?Instructions ?Recorded ?Confirmed ?Last Taken ?Type albuterol sulfate 90 mcg/actuation 1 inhalation inhalation PRN PRN 10/11/19 10/12/23 10/05/21 History breath activated powder inhaler Bronchospasm Allergies Allergy/AdvReac Type Severity Reaction Status Date / Time iodine Allergy Severe Dyspnea / Verified 09/30/24 00:33 SOB milk Allergy Severe Swelling Verified 09/30/24 00:33 of Lip/Tongue/Throat shellfish derived Allergy Severe Dyspnea / Verified 09/30/24 00:33 SOB shrimp Allergy Severe Dyspnea / Verified 09/30/24 00:33 SOB tree and shrub pollen Allergy Dyspnea / Verified 09/30/24 00:33 SOB Shrimp Allergy Severe Dyspnea / Uncoded 09/30/24 00:33 SOB Review of Systems 2 Review of Systems: All systems reviewed & are unremarkable except as noted in HPI and below PMFSH Past Medical History Medical History Asthma Miscarriage x1 Vaginal delivery x3 Surgical History Surgical History H/O dilation and curettage [place] teeth removed Family History Family History Grandparent Skin cancer Diabetes mellitus Hyperlipidemia Lung cancer Hypertension Bone spur Mother Skin cancer Social History Social History Smoking status: Never smoker Tobacco type: cigarettes Second hand tobacco smoke exposure: No Additional smoking assessment comments: 1-2 cigarettes 2-3 days per week when at work Alcohol intake: never Substance use: never Gender identity (if verbalized by the patient): Female Spiritual care concerns: No Exam 2 Const: General: cooperative, healthy appearing, comfortable and no acute distress HENMT: Outer ear/TM images: 1. imbedded hearing stud in the posterior earlobe Face and sinus: normal facial exam Mouth: Yes Normal oral and palatal mucosa present Chest: Chest palpation & inspection: normal inspection of the chest and normal palpation of entire chest wall Resp: Effort & Inspection: normal respiratory effort and able to speak in complete sentences Cardio: Palpation: normal PMI Rate: regular rate Rhythm: regular rhythm Heart sounds: S1 normal heart sound present and S2 normal heart sound present Skin: General skin exam: normal color and no rashes or lesions noted W ounds: wounds noted Neuro: General: oriented to person, oriented to place and oriented to time Course Course Emergency Course: imbedded earring right earlobe 11 blade was used to fabrice the posterior earlobe and forceps used to remove the hearing started from the back of the earlobe, patient tolerated procedure well Betadine was used patient is up-to-date with her tetanus. Vital Signs Vital signs: Vital Signs Temperature 36.4 C 09/30/24 00:22 Pulse Rate 80 09/30/24 00:22 Respiratory Rate 18 09/30/24 00:22 Blood Pressure 126/73 09/30/24 00:22 Pulse Oximetry 97 09/30/24 00:22 Oxygen Delivery Room Air 09/30/24 00:22 Temperature 36.4 C 09/30/24 00:22 Pulse Rate 80 09/30/24 00:22 Respiratory Rate 18 09/30/24 00:22 Blood Pressure 126/73 09/30/24 00:22 Pulse Oximetry 97 09/30/24 00:22 Oxygen Delivery Room Air 09/30/24 00:22 Medical Decision Making Vital Signs Vital Signs: Vital Signs Temperature 36.4 C 09/30/24 00:22 Pulse Rate 80 09/30/24 00:22 Respiratory Rate 18 09/30/24 00:22 Blood Pressure 126/73 09/30/24 00:22 Pulse Oximetry 97 09/30/24 00:22 Oxygen Delivery Room Air 09/30/24 00:22 Temperature 36.4 C 09/30/24 00:22 Pulse Rate 80 09/30/24 00:22 Respiratory Rate 18 09/30/24 00:22 Blood Pressure 126/73 09/30/24 00:22 Pulse Oximetry 97 09/30/24 00:22 Oxygen Delivery Room Air 09/30/24 00:22 Critical Care Time Critical Care Time Critical Care Time: No Discharge Plan Discharge Clinical Impression: Embedded earring of right ear Qualifiers: Encounter type: initial encounter Qualified Code(s): S00.451A - Superficial foreign body of right ear, initial encounter Patient Disposition: Home Condition: Stable Instructions: Antibiotic Form, Soft Tissue Foreign Body (ED) Additional Instructions: advised patient to follow with primary if symptoms persist or worsen. Patient Language: Grenadian Prescriptions: No Action epinephrine [EpiPen 2-Manish] 0.3 mg/0.3 mL auto-injector 0.3 mg IM ONCE PRN (Reason: anaphylaxis) Qty: 2 0RF Rx Instructions: do not exceed 12 doses per 24 hrs loratadine 10 mg capsule 20 mg PO DAILY 7 Days Qty: 14 0RF oseltamivir [Tamiflu] 75 mg capsule 75 mg PO Q12H 5 Days Qty: 10 0RF albuterol sulfate 90 mcg/actuation aerosol powdr breath activated 1 inhalation INHALATION PRN PRN (Reason: Bronchospasm) Follow-up/Referrals: Ariel,ROSETTA Zamudio [Primary Care Provider] - Time of Disposition: 00:45
--- OUTSIDE RECORDS SUMMARY | 2024-09-30 00:49 | XMS_ITS | Clinical Summary ---
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
--- OUTSIDE RECORDS SUMMARY | 2024-09-30 00:49 | XMS_ITS | Continuity of Care Document ---
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 tel:[phone] Family History Family Member Type Diagnosis Age At Onset No Information Payers Payer name Insurance type Covered democrat ID Authoralysona liam(s) [facility] [id number] Social History Type Description Quantity Date Captured Comments Sex Female Smoking Status No Information Chief Complaint And Reason For Visit No Information History Of Present Illness Encounter Date Complaint History Of Prese nt Illness No Information Instructions Date Instruction Additional Infor mation No Information Assessments Type Assessment Date No Information
== END 2024-09-30 00:50 | disposition home or self-care (01) ==
LOC: CHSED 00:48
PROVIDERS: Emergency Provider Emergency Medicine; PCP Physician Assistant
DX: S00.451A Superficial foreign body of right ear, initial encounter (principal); X58.XXXA Exposure to other specified factors, initial encounter
CPT/HCPCS: 69200; 99282